=== PATIENT | male | born 1945 | race Caucasian/White ===

== ENCOUNTER 2016-02-16 09:24 | Day surgery (SDC) | payer MEDICARE, OTHER ==
[2016-02-16] MEDS ORDERED: LACTATED RINGERS 1,000 ML IV ONE (11:45)
[2016-02-16] MEDS ORDERED: MIDAZOLAM 2 MG/2 ML VIAL IVP ONE (12:00)
[2016-02-16] MEDS ORDERED: LIDOCAINE-MPF 2% 5 ML VIAL IM ONE (12:00)
[2016-02-16] MEDS ORDERED: PROPOFOL 200 MG/20 ML VIAL IVP ONE (12:00)
== END 2016-02-16 09:25 | disposition home or self-care (01) ==
PROC: 0DBL8ZX Excision of Transverse Colon, Via Natural or Artificial Opening Endoscopic, Diagnostic (ICD-10-PCS; principal; 2016-02-16 10:30)
DX: Z12.11 Encounter for screening for malignant neoplasm of colon (principal); D12.3 Benign neoplasm of transverse colon; K57.30 Diverticulosis of large intestine without perforation or abscess without bleeding; K64.4 Residual hemorrhoidal skin tags; K64.8 Other hemorrhoids; I10 Essential (primary) hypertension; R12 Heartburn; F17.200 Nicotine dependence, unspecified, uncomplicated; E78.5 Hyperlipidemia, unspecified; M10.9 Gout, unspecified; Z79.82 Long term (current) use of aspirin
CPT/HCPCS: 45385; J7120

== ENCOUNTER 2016-12-27 12:03 | Outpatient (CLI) | payer MEDICARE, OTHER ==
--- NOTE | 2016-12-27 17:16 | CT Report ---
CT CHEST WITHOUT CONTRAST FOR LUNG CANCER SCREENIN12/27/2016 CLINICAL INDICATION: A 71-year-old asymptomatic patient with 45 pack year history, current smoker fo r screening. Axial CT images of the chest were obtained without intravenous contrast, using low-dose screening vladimir hnique. In accordance with CT protocol optimization, one or more of the following dose reduction techniques w ere utilized for this exam: automated exposure control, adjustment of mA and/or KV based on patient size, or use of iterative reconstructive technique. No previous CT is available for comparison. The heart and great vessels are unremarkable. No hilar or mediastinal lymphadenopathy is present. T he lungs demonstrate emphysema. There is a pulmonary nodule in the posteromedial right lower lobe, m easuring 10 x 9 mm. No effusion or pneumothorax is present. Osseous structures demonstrate degenera tive changes. Limited evaluation of upper abdominal structures demonstrates a 2 cm hypodensity in th e anterior right lobe of the liver, and exophytic nodules arising from the left kidney, which may rep resent cysts. IMPRESSION: 1. SUSPICIOUS 10 MM NODULE AT THE RIGHT POSTEROMEDIAL LOWER LOBE. CONSIDER EITHER PET/CT FOR FURTHE R EVALUATION OR THREE MONTH FOLLOWUP CT TO EVALUATE FOR INTERVAL GROWTH. BY LUNG RADS CRITERIA, THIS NODULE HAS BETWEEN A 5% AND 15% PROBABILITY OF MALIGNANCY. 2. HYPODENSITY IN THE RIGHT LOBE OF THE LIVER AND EXOPHYTIC LESIONS ARISING FROM THE LEFT KIDNEY, IN COMPLETELY EVALUATED ON THIS STUDY. IF PET/CT IS PERFORMED, THESE CAN BE FURTHER EVALUATED WITH THAT . OTHERWISE, CONSIDER ABDOMINAL ULTRASOUND. LUNG RADS CATEGORY 4A, SUSPICIOUS ABNORMALITY. JOB #: [id number] EXT JOB #:[id number]
== END 2016-12-27 12:04 | disposition home or self-care (01) ==
LOC: DI 12:03
PROVIDERS: ATTEND Internal Medicine
DX: Z12.2 Encounter for screening for malignant neoplasm of respiratory organs (principal); R91.1 Solitary pulmonary nodule; F17.210 Nicotine dependence, cigarettes, uncomplicated

== ENCOUNTER 2017-07-19 07:48 | Outpatient (CLI) | payer MEDICARE, OTHER ==
[2017-07-19 08:27] LABS: HB2 TOTAL 16.4 g/dL; HEMOGLOBIN A1C 0.55 g/dL; HEMOGLOBIN A1C % 5.2 % (4.6-6.2)
[2017-07-19 09:06] LABS: PSA FREE 0.97 ng/mL (0.16-2.81)
[2017-07-19 09:07] LABS: PSA TOTAL 3.79 ng/mL (0.000-2.000)
== END 2017-07-19 07:49 | disposition home or self-care (01) ==
LOC: LAB 07:48
PROVIDERS: ATTEND Internal Medicine
DX: R97.20 Elevated prostate specific antigen [PSA] (principal); R73.9 Hyperglycemia, unspecified; R89.9 Unspecified abnormal finding in specimens from other organs, systems and tissues
CPT/HCPCS: 36415; 82947; 83036; 84154

== ENCOUNTER 2017-08-12 19:53 | Emergency (ER) | payer MEDICARE, OTHER ==
[2017-08-12] MEDS ORDERED: LIDOCAINE-EPINEPH-TETRACAINE 3 ML SYRINGE TOP STA (20:12)
--- NOTE | 2017-08-12 20:16 | ED Physician Documentation ---
History of Present Illness - Stated complaint Stated Complaint: HEAD LAC/GLF - Chief complaint Chief Complaint: Laceration - History obtained from History obtained from: Patient - History of Present Illness Timing: Prior to arrival - Additonal information Additional information: 72-year-old male presents the emergency department for evaluation of a head injury which occurred just prior to arrival. The patient fell backwards striking his head on the toilet seat. The patient denies a loss of consciousness after the event. The patient denies chest pain, palpitations or syncope before or after the event. The patient denies trauma to his torso or extremities. Symptoms are described as moderate. Currently bleeding is controlled. No other associated symptoms. The patient's tetanus is up-to-date Review of Systems Constitutional: denies: Fever Eyes: denies: Loss of vision Cardiac: denies: Chest pain / pressure, Palpitations Respiratory: denies: Dyspnea GI: denies: Abdominal Pain : denies: Dysuria Skin: denies: Rash Musculoskeletal: reports: Neck pain Neurologic: reports: Headache Psychiatric: denies: Depressed Endocrine: denies: Polydypsia PD PAST MEDICAL HISTORY - Past Medical History Past Medical History: Yes Cardiovascular: Hypertension, High cholesterol Respiratory: None Endocrine/Autoimmune: None GI: GERD, Hemorrhoids : None HEENT: Chronic vision loss, Chronic hearing loss Psych: None Musculoskeletal: Osteoarthritis, Gout Derm: None - Past Surgical History Past Surgical History: Yes General: Colonoscopy - Present Medications Home Medications: Ambulatory Orders Medication Instructions Recorded Confirmed Allopurinol 150 mg PO DAILY 02/15/16 02/15/16 Aspirin [Aspir-Low] 1 tab PO DAILY 02/15/16 02/15/16 Cetirizine [ZyrTEC] 1 tab PO DAILY 02/15/16 02/15/16 Lisinopril 20 mg PO BID 02/15/16 02/15/16 Omeprazole 1 tab PO DAILY 02/15/16 02/15/16 Potassium Chloride 1 tab PO DAILY 02/15/16 02/15/16 hydroCHLOROthiazide [Hydrodiuril] 1 tab PO DAILY 02/15/16 02/15/16 Terazosin HCl 1 cap PO DAILY 08/12/17 - Allergies Allergies/Adverse Reactions: Allergies Allergy/AdvReac Type Severity Reaction Status Date / Time No Known Drug Allergies Allergy Verified 08/12/17 19:57 - Social History Does the pt smoke?: Yes Smoking Status: Current every day smoker Does the pt drink ETOH?: Yes ETOH Use: Liquor Does the pt have substance abuse?: No - Immunizations Immunizations are current?: Yes Immunizations: TDAP current <10years PD ED PE NORMAL - General General: Alert and oriented X 3, No acute distress - HEENT HEENT: PERRL, EOMI, Moist mucous membranes. No: Atraumatic (The patient has a 1 cm laceration at the junction of the occiput and cervical spine. Currently there is no active bleeding. No foreign body) - Neck Neck: Other (The cervical Spine is not able to be cleared using the Nexus criteria secondary to the patient being intoxicated) - Cardiac Cardiac: RRR - Respiratory Respiratory: No respiratory distress - Derm Derm: Other (The patient has a 1 cm laceration at the back of the occiput) - Extremities Extremities: No deformity, Normal ROM s pain - Neuro Neuro: Alert and oriented X 3, coconut candy maker 2-12 intact, No motor deficit, Normal speech Eye Opening: Spontaneous Motor: Obeys Commands Verbal: Oriented GCS Score: 15 - Psych Psych: Normal mood Results - Vitals Vitals: Vital Signs - 24 hr 08/12/17 19:55 Temperature 36.4 C L Heart Rate 104 H Respiratory 16 Rate Blood Pressure 143/77 H O2 Saturation 99 Oxygen O2 Source Room air - Rads (name of study) No standard instances Radiology: Final report received (No cervical spine fracture, intracranial hemorrhage or skull fracture. ), See rad report Procedures - Laceration (location) Scalp Posterior Length in cm: 1 (Centimeters) Wound type: Linear Anesthesia: LET Wound Preparation: Irrigated copiously NS. No: FB identified Skin layer closure: Freedom Other: Patient tolerated well Complexity: Simple PD MEDICAL DECISION MAKING - ED course Complexity details: other (The patient had a laceration to the back of his skull , given the injury, age and intoxication a CT scan of the headAnd cervical spine were performed. There was no acute finding which would necessitate admission or acute surgical consultation. The patient's wound was closed using noreen and the patient appears appropriate for discharge home in ongoing outpatient management. I discussed warning signs and advised returning to the emergency department immediately for any worsening or concerns.) - Sepsis Event Vital Signs: Vital Signs - 24 hr 08/12/17 19:55 Temperature 36.4 C L Heart Rate 104 H Respiratory 16 Rate Blood Pressure 143/77 H O2 Saturation 99 Oxygen O2 Source Room air Departure - Departure Clinical Impression: Laceration Condition: Good Instructions: ED Laceration All Follow-Up: Cortez Blackburn MD [Primary Care Provider] - Within 1 week (Please have your primary care physician remove your noreen in 7-10 days) Comments: Please return to the emergency department immediately for worsening symptoms or any concerns Discharge Date/Time: 08/12/17 20:55
[2017-08-12 20:59] VITALS: BP 109/65
--- NOTE | 2017-08-12 20:59 | CT Report ---
Procedure Date: 08/12/2017 Accession Number: [id number] / [id number] Procedure: CT - Head W/O CPT Code: FULL RESULT: EXAM: CT HEAD EXAM DATE: 08/12/2017 08:38 PM. CLINICAL HISTORY: Head injury. COMPARISON: None. TECHNIQUE: Multiaxial CT images were obtained from the foramen magnum to the vertex. Reformats: Coronal. IV contrast: None. In accordance with CT protocol optimization, one or more of the following dose reduction techniques were utilized for this exam: automated exposure control, adjustment of mA and/or KV based on patient size, or use of iterative reconstructive technique. FINDINGS: Parenchyma: No intraparenchymal hemorrhage. No evidence of mass, midline shift, or CT findings of infarction. Torres-white differentiation is distinct. Extraaxial Spaces: Normal for age. No subdural or epidural collections identified. Ventricles: Normal in size and position. Sinuses and Orbits: Scattered mucosal thickening without air-fluid levels. Unremarkable orbits. Minimally pneumatized mastoids. Bones: No evidence of fracture or calvarial defect. Other: None. IMPRESSION: Normal head CT. RADIA
--- NOTE | 2017-08-12 21:00 | CT Report ---
Procedure Date: 08/12/2017 Accession Number: [id number] / [id number] Procedure: CT - Cervical Spine W/O CPT Code: FULL RESULT: EXAM: CT CERVICAL SPINE WITHOUT CONTRAST DATE: 08/12/2017 08:38 PM. HISTORY: Head injury. COMPARISONS: None. TECHNIQUE: Thin-section axial images were acquired of the cervical spine without contrast. Post-processing: Coronal and sagittal reformats. Other: None. In accordance with CT protocol optimization, one or more of the following dose reduction techniques were utilized for this exam: automated exposure control, adjustment of mA and/or KV based on patient size, or use of iterative reconstructive technique. FINDINGS: Alignment: No scoliosis or spondylolisthesis. Bones: No fracture or bone lesion. Interspace Levels/Facets: C1-C2: Anterior degenerative changes. C2-C3: Unremarkable. C3-C4: Unremarkable. C4-C5: Unremarkable. C5-C6: Moderate disk space narrowing with spurring. C6-C7: Unremarkable. C7-T1: Unremarkable. Musculature: Normal. No fatty atrophy. Other: The paravertebral and prevertebral soft tissues are unremarkable. The lung apices are clear. IMPRESSION: 1. No acute cervical spine abnormalities. 2. Degenerative disk disease at C5-C6. RADIA
== END 2017-08-12 21:07 | disposition home or self-care (01) ==
LOC: ED 19:53
DX: S01.01XA Laceration without foreign body of scalp, initial encounter (principal); W18.2XXA Fall in (into) shower or empty bathtub, initial encounter; W22.8XXA Striking against or struck by other objects, initial encounter; I10 Essential (primary) hypertension; E78.00 Pure hypercholesterolemia, unspecified; F17.200 Nicotine dependence, unspecified, uncomplicated; Z79.82 Long term (current) use of aspirin
CPT/HCPCS: 12001; 70450; 72125; 99283

== ENCOUNTER 2018-01-09 12:09 | Outpatient (CLI) | payer MEDICARE, OTHER ==
--- NOTE | 2018-01-09 13:37 | CT Report ---
Reason: PULMONARY NODULE Procedure Date: 01/09/2018 Accession Number: [id number] / [id number] Procedure: CT - Chest W/O CPT Code: FULL RESULT: EXAM: CT CHEST EXAM DATE: 01/09/2018 12:42 PM. CLINICAL HISTORY: PULMONARY NODULE. COMPARISONS: CHEST SCREEN LOW DOSE W/O 12/27/2016 12:16 PM. TECHNIQUE: Routine helical CT imaging was performed through the chest. IV contrast: None. Reconstructions: Coronal and sagittal as well as maximum intensity projections in the coronal plane.. In accordance with CT protocol optimization, one or more of the following dose reduction techniques were utilized for this exam: automated exposure control, adjustment of mA and/or KV based on patient size, or use of iterative reconstructive technique. FINDINGS: Lungs/Pleura: The posterior right lower lobe well-circumscribed solid nodule is stable measuring 1.2 x 0.8 cm when remeasured in similar fashion on both examinations, image 46 series 4. There is a spiculated partially solid-appearing nodule in the left upper lobe laterally which now measures 1.3 x 1.2 cm and previously measured 1.1 x 0.8 cm when remeasured in similar fashion on image 27 series 4, suspicious finding. Lung parenchymal background demonstrates at least moderate emphysema. No pleural effusion or pneumothorax. Mediastinum: No adenopathy by size criteria or masses. The heart and great vessels are normal. Bones: No aggressive osseous lesions. Visualized Abdomen: There is a faintly visualized 2.0 cm hypodense lesion in the pancreatic tail, image 56 series 4 that is not completely characterized. A left renal cyst is noted. 2.2 cm right hepatic dome lesion, incompletely characterized. Other: None. IMPRESSION: The previously followed posterior right lower lobe lung nodule is stable in size. Interval progression of a previously present sub-solid focus into a partially solid spiculated nodule which has increased in size and is suspicious. 1 year persistence with interval growth; this represents cancer until proven otherwise. Recommendation: -Biopsy of the increasing left upper lobe nodule. -Stability of the right lower lobe nodule makes it reasonable to continue surveillance of the same. Recommend repeat CT of the chest in 1 year. If this nodule demonstrates a 2 year stability it is then classified as benign and would require no further follow-up imaging. RADIA
== END 2018-01-09 12:10 | disposition home or self-care (01) ==
LOC: DI 12:09
PROVIDERS: ATTEND Internal Medicine
DX: R91.1 Solitary pulmonary nodule (principal)
CPT/HCPCS: 71250

== ENCOUNTER 2018-01-10 07:46 | Outpatient (CLI) | payer MEDICARE, OTHER ==
[2018-01-10 08:04] LABS: BASOPHILS # (AUTO) 0.1 10^3/uL (0.0-0.1); BASOPHILS % (AUTO) 0.9 %; EOSINOPHILS # (AUTO) 0.4 10^3/uL (0.0-0.7); EOSINOPHILS % (AUTO) 4.8 %; HGB - HEMOGLOBIN 14.1 g/dL (14.0-18.0); LYMPHOCYTES # (AUTO) 2.2 10^3/uL (1.5-3.5); LYMPHOCYTES % (AUTO) 29.5 %; MEAN CORPUSCULAR HEMOGLOBIN 30.8 pg (27.0-31.0); MEAN CORPUSCULAR HGB CONC 32.7 g/dL (32.0-36.0); MEAN CORPUSCULAR VOLUME 94.1 fL (80.0-94.0); MEAN PLATELET VOLUME 7.9 fL (7.4-11.4); MONOCYTES # (AUTO) 0.7 10^3/uL (0.0-1.0); MONOCYTES % (AUTO) 9.6 %; NEUTROPHILS # (AUTO) 4.2 10^3/uL (1.5-6.6); NEUTROPHILS % (AUTO) 55.2 %; PLT - PLATELET COUNT 256 10^3/uL (130-450); RED BLOOD COUNT 4.56 10^6/uL (4.70-6.10); RED CELL DISTRIBUTION WIDTH 14.6 % (12.0-15.0); WHITE BLOOD COUNT 7.6 x10^3/uL (4.8-10.8)
[2018-01-10 08:22] LABS: ALBUMIN 3.5 g/dL (3.2-5.5); ALKALINE PHOSPHATASE 57 IU/L (42-121); ALT ALANINE AMINOTRANSFERASE 18 IU/L (10-60); AST ASPARTATE AMINOTRANSFERASE 20 IU/L (10-42); BILIRUBIN,TOTAL 0.8 mg/dL (0.2-1.0); BUN - BLOOD UREA NITROGEN 15 mg/dL (6-20); CALCIUM 8.8 mg/dL (8.5-10.3); CARBON DIOXIDE - CO2 27 mmol/L (21-32); CHLORIDE 108 mmol/L (101-111); CHOL/HDL RATIO 3.4 (<5.0); CHOLESTEROL 158 mg/dL; CREATININE 0.9 mg/dL (0.6-1.2); GFR - MDRD 83 (>89); GLUCOSE 107 mg/dL (70-100); HDL CHOLESTEROL 47 mg/dL; LDL CHOLESTEROL,CALCULATED 85 mg/dL; LDL/HDL RATIO 1.8 (<3.6); SODIUM 140 mmol/L (135-145); VLDL CHOLESTEROL 26 mg/dL
[2018-01-10 09:19] LABS: PSA FREE 0.91 ng/mL (0.16-2.81)
[2018-01-10 09:20] LABS: PSA TOTAL 3.65 ng/mL (0.000-2.000)
== END 2018-01-10 07:47 | disposition home or self-care (01) ==
LOC: LAB 07:46
PROVIDERS: ATTEND Internal Medicine
DX: R97.20 Elevated prostate specific antigen [PSA] (principal); R73.9 Hyperglycemia, unspecified; M10.9 Gout, unspecified; I10 Essential (primary) hypertension
CPT/HCPCS: 36415; 80053; 80061; 83721; 84153; 84154; 85025

== ENCOUNTER 2018-03-06 11:01 | Outpatient (CLI) | payer MEDICARE, OTHER | END 2018-03-06 11:02 | disposition home or self-care (01) | LOC: LAB 11:01 | PROVIDERS: ATTEND Internal Medicine | DX: I10 Essential (primary) hypertension (principal) | CPT/HCPCS: 36415; 80048 ==

== ENCOUNTER 2018-06-17 18:27 | Emergency (ER) | payer MEDICARE, OTHER ==
--- NOTE | 2018-06-17 18:58 | ED Physician Documentation ---
History of Present Illness - Stated complaint Stated Complaint: BLOOD IN URINE - Chief complaint Chief Complaint: General - History obtained from History obtained from: Patient, Family - History of Present Illness Timing: Today (72-year-old gentleman with history of high PSAs but no history of prostate cancer presents with hematuria today. It is a large amount of blood but not associated with clots. No urinary frequency, bladder or flank pain. He says he had a left low back to me a couple of months ago for localized lung cancer and briefly had hematuria but that resolved without specific interv ention. He is on terazosin long-term for his prostate.) Review of Systems Constitutional: reports: Reviewed and negative Cardiac: reports: Reviewed and negative Respiratory: reports: Reviewed and negative GI: reports: Reviewed and negative : denies: Dysuria, Frequency, Hesitancy, Unable to Void, Incontinent PD PAST MEDICAL HISTORY - Past Medical History Past Medical History: Yes Cardiovascular: Hypertension Respiratory: Other Neuro: None Endocrine/Autoimmune: None GI: GERD, Hemorrhoids : None HEENT: Chronic vision loss, Chronic hearing loss Psych: None Musculoskeletal: Osteoarthritis, Gout Derm: None - Past Surgical History Past Surgical History: Yes General: Colonoscopy Cardiovascular: Lobectomy - Present Medications Home Medications: Ambulatory Orders Medication Instructions Recorded Confirmed Allopurinol 150 mg PO DAILY 02/15/16 02/15/16 Aspirin [Aspir-Low] 1 tab PO DAILY 02/15/16 02/15/16 Cetirizine [ZyrTEC] 1 tab PO DAILY 02/15/16 02/15/16 Lisinopril 20 mg PO BID 02/15/16 02/15/16 Omeprazole 1 tab PO DAILY 02/15/16 02/15/16 Potassium Chloride 1 tab PO BID 02/15/16 02/15/16 hydroCHLOROthiazide [Hydrodiuril] 1 tab PO DAILY 02/15/16 02/15/16 Terazosin HCl 1 cap PO DAILY 08/12/17 Ciprofloxacin HCl [Cipro] 500 mg PO BID #20 tablet 06/17/18 predniSONE [Prednisone] 06/17/18 - Allergies Allergies/Adverse Reactions: Allergies Allergy/AdvReac Type Severity Reaction Status Date / Time ranitidine Allergy Cramps Verified 06/17/18 18:35 - Social History Does the pt smoke?: No Smoking Status: Former smoker Does the pt drink ETOH?: Yes Does the pt have substance abuse?: No - Immunizations Immunizations are current?: Yes Immunizations: TDAP current <10years - POLST Patient has POLST: No PD ED PE NORMAL - Vitals Vital signs reviewed: Yes - General General: Alert and oriented X 3, No acute distress - Abdomen Abdomen: Normal bowel sounds, Soft, Non tender - Back Back: No CVA TTP, No spinal TTP - Neuro Neuro: Alert and oriented X 3, Normal speech Results - Vitals Vitals: Vital Signs - 24 hr 06/17/18 18:31 Temperature 36.7 C Heart Rate 87 Respiratory 16 Rate Blood Pressure 141/75 H O2 Saturation 97 Oxygen O2 Source Room air - Labs Labs: Laboratory Tests 06/17/18 18:49 Urine Color RED/BLOODY Urine Clarity BLOODY Urine pH 6.5 Ur Specific [place] 1.025 Urine Protein >=300 Urine Glucose (UA) NEGATIVE Urine Ketones TRACE Urine Occult Blood LARGE H Urine Nitrite POSITIVE H Urine Bilirubin NEGATIVE Urine Urobilinogen 0.2 (NORMAL) Ur Leukocyte Esterase TRACE H Urine RBC TNTC H Urine WBC 0-3 Ur Squamous Epith Cells NONE SEEN Urine Bacteria None Seen Urine Yeast PRESENT Ur Microscopic Review INDICATED Urine Culture Comments INDICATED Departure - Departure Disposition: 01 Home, Self Care Clinical Impression: Hemorrhagic cystitis Condition: Good Record reviewed to determine appropriate education?: Yes Instructions: ED UTI Cystitis Male Prescriptions: Ciprofloxacin HCl [Cipro] 500 mg PO BID #20 tablet Comments: We will culture your urine, the results should be done in 48-72 hours. If an antibiotic change is necessary we will call you. Return if worse in the meantime, especially if you develop increasing flank pain, fevers, or cannot soto p down the medication. Also as discussed, you need to follow-up with your primary care physician for repeat urinalysis in a few days to a week or 2. If the blood has not cleared up they will refer you for further evaluation and treatment.
[2018-06-17 19:06] LABS: GLUCOSE, URINE (UA) NEGATIVE (NEGATIVE); KETONES,URINE (UA) TRACE mg/dL (NEGATIVE); LEUKOCYTE ESTERASE, URINE TRACE (NEGATIVE); NITRITE,URINE POSITIVE (NEGATIVE); OCCULT BLOOD,URINE LARGE (NEGATIVE); PH,URINE 6.5 PH (5.0-7.5); PROTEIN,URINE >=300 mg/dL (NEGATIVE); UROBILINOGEN,URINE 0.2 (NORMAL) E.U./dL (NORMAL)
[2018-06-17 19:14] LABS: BILIRUBIN,URINE NEGATIVE (NEGATIVE); CLARITY,URINE BLOODY (CLEAR); ICTOTEST,URINE NEGATIVE
[2018-06-17 19:15] LABS: BACTERIA,URINE None Seen /HPF (None Seen); RBC,URINE TNTC /HPF (0-5); SQUAMOUS EPITHELIAL CELL,UR NONE SEEN (<= Few); YEAST,URINE PRESENT
[2018-06-17] MEDS ORDERED: CIPROFLOXACIN 250 MG TABLET PO STA (19:22)
[2018-06-17 19:45] VITALS: BP 165/92
== END 2018-06-17 19:45 | disposition home or self-care (01) ==
LOC: ED 18:27
DX: N30.91 Cystitis, unspecified with hematuria (principal); R97.20 Elevated prostate specific antigen [PSA]; I10 Essential (primary) hypertension; Z79.899 Other long term (current) drug therapy; Z90.2 Acquired absence of lung [part of]; Z85.118 Personal history of other malignant neoplasm of bronchus and lung; Z79.82 Long term (current) use of aspirin; Z87.891 Personal history of nicotine dependence
CPT/HCPCS: 81001; 87086; 99283; A9270; 81003

== ENCOUNTER 2018-06-26 13:12 | Outpatient (CLI) | payer MEDICARE, OTHER ==
[2018-06-26] MEDS ORDERED: ALBUTEROL NEB 2.5 MG/3 ML INH ONE (14:00)
== END 2018-06-26 13:13 | disposition home or self-care (01) ==
LOC: RT 13:12
PROVIDERS: ATTEND Registered Nurse
DX: J20.9 Acute bronchitis, unspecified (principal); C34.90 Malignant neoplasm of unspecified part of unspecified bronchus or lung; Z87.891 Personal history of nicotine dependence; Z90.2 Acquired absence of lung [part of]
CPT/HCPCS: 93005; 94060

== ENCOUNTER 2018-07-11 08:07 | Outpatient (CLI) | payer MEDICARE, OTHER ==
[2018-07-11 08:33] LABS: BASOPHILS % (AUTO) 0.5 %; EOSINOPHILS # (AUTO) 0.5 10^3/uL (0.0-0.7); EOSINOPHILS % (AUTO) 9.5 %; HGB - HEMOGLOBIN 13.7 g/dL (14.0-18.0); LYMPHOCYTES # (AUTO) 1.5 10^3/uL (1.5-3.5); LYMPHOCYTES % (AUTO) 27.1 %; MEAN CORPUSCULAR HEMOGLOBIN 31.4 pg (27.0-31.0); MEAN CORPUSCULAR HGB CONC 34.2 g/dL (32.0-36.0); MEAN PLATELET VOLUME 8.2 fL (7.4-11.4); MONOCYTES # (AUTO) 0.5 10^3/uL (0.0-1.0); MONOCYTES % (AUTO) 9.7 %; NEUTROPHILS % (AUTO) 53.2 %; PLT - PLATELET COUNT 209 10^3/uL (130-450); RED BLOOD COUNT 4.36 10^6/uL (4.70-6.10); RED CELL DISTRIBUTION WIDTH 13.7 % (12.0-15.0); WHITE BLOOD COUNT 5.6 x10^3/uL (4.8-10.8)
[2018-07-11 08:48] LABS: ALBUMIN 3.7 g/dL (3.2-5.5); ALBUMIN/GLOBULIN RATIO 1.1 (1.0-2.2); CALCIUM 8.9 mg/dL (8.5-10.3); CREATININE 1.1 mg/dL (0.6-1.2); TOTAL PROTEIN 7.2 g/dL (6.7-8.2)
[2018-07-11 09:15] LABS: PSA FREE 0.87 ng/mL (0.16-2.81)
[2018-07-11 09:16] LABS: PSA TOTAL 2.82 ng/mL (0.000-2.000)
== END 2018-07-11 08:08 | disposition home or self-care (01) ==
LOC: LAB 08:07
PROVIDERS: ATTEND Family Medicine
DX: C34.90 Malignant neoplasm of unspecified part of unspecified bronchus or lung (principal); R97.20 Elevated prostate specific antigen [PSA]
CPT/HCPCS: 36415; 80053; 84153; 84154; 85025

== ENCOUNTER 2018-07-16 14:18 | Outpatient (CLI) | payer MEDICARE, OTHER ==
--- NOTE | 2018-07-16 15:37 | XRAY Report ---
Reason: ORTHOPNEA,BPH Procedure Date: 07/16/2018 Accession Number: [id number] / [id number] Procedure: XR - Chest 2 View X-Ray CPT Code: 62218 FULL RESULT: EXAM: CHEST RADIOGRAPHY EXAM DATE: 07/16/2018 03:01 PM. CLINICAL HISTORY: ORTHOPNEA,BPH. COMPARISON: None. TECHNIQUE: 2 views. FINDINGS: Lungs/Pleura: Lung volumes are low with mild left basilar subsegmental atelectases. No focal opacities evident. No pleural effusion. No pneumothorax. Normal volumes. Mediastinum: Heart and mediastinal contours are unremarkable. Other: None. IMPRESSION: Low lung volumes with mild left basilar atelectasis. No acute cardiopulmonary process. RADIA
== END 2018-07-16 14:19 | disposition home or self-care (01) ==
LOC: LAB 14:18 → DI 14:19
PROVIDERS: ATTEND Family Medicine
DX: J98.11 Atelectasis (principal); N40.0 Benign prostatic hyperplasia without lower urinary tract symptoms
CPT/HCPCS: 36415; 71046; 83880

== ENCOUNTER 2018-10-18 10:43 | Outpatient (CLI) | payer MEDICARE, OTHER ==
--- NOTE | 2018-10-20 16:24 | CT Report ---
Reason: COUGH, OTHER CHRONIC SINUSITIS Procedure Date: 10/18/2018 Accession Number: [id number] / [id number] Procedure: CT - Sinuses CPT Code: FULL RESULT: EXAM: CT SINUS EXAM DATE: 10/18/2018 10:58 AM. HISTORY: COUGH, OTHER CHRONIC SINUSITIS. COMPARISONS: HEAD W/O 08/12/2017 8:28 PM. TECHNIQUE: Routine multi-axial CT imaging performed through the sinuses. Iodinated IV contrast: None. Reconstructions: Multiplanar reformats. In accordance with CT protocol optimization, one or more of the following dose reduction techniques were utilized for this exam: automated exposure control, adjustment of mA and/or KV based on patient size, or use of iterative reconstructive technique. FINDINGS: Sinuses: Maxillary sinuses: Extensive opacification of the axillary sinuses bilaterally. This appears to be secondary to chronic mucosal thickening. There appears to have been bilateral uncinectomy and antrostomies. Patency of drainage is demonstrated. This is relatively narrow on the left side. Ethmoid air cells: Multifocal mucosal thickening, greater at the anterior ethmoids. Partial ethmoidectomy. Frontal sinuses: Inferior mucosal thickening with obstructed frontal recesses. 6 mm osteoma seen at the frontal recess on the left. Sphenoid sinuses: No significant abnormality. Nasal Cavity: -Partial right middle turbinectomy. -Near complete left middle turbinectomy. -Partial right inferior turbinectomy. -Lower nasal septal deviation to the right. Mid nasal septal deviation to the left with spur formation. -Anterior right bony maxillary/hard palate resorption/resection noted with soft tissue seen continuous with the oral cavity. This is partially visualized. Clinically correlate. -Mid posterior left paramidline hard palate resorption/resection. Clinically correlate. - Osseous Structures: As above. Orbits: Unremarkable. Other: None. IMPRESSION: 1. Multifocal postsurgical changes as noted. 2. Bony resorption and/or resection is noted including anterior maxillary bone on the right and mid posterior hard palate. 3. Evidence of chronic maxillary, ethmoid and frontal sinusitis, relatively mild at the ethmoids and frontal sinuses. 3. 4. Nasal septal deviation. RADIA
== END 2018-10-18 10:44 | disposition home or self-care (01) ==
LOC: DI 10:43
PROVIDERS: ATTEND Otolaryngology
DX: J32.8 Other chronic sinusitis (principal); J34.2 Deviated nasal septum
CPT/HCPCS: 70486

== ENCOUNTER 2019-01-15 07:51 | Outpatient (CLI) | payer MEDICARE, OTHER ==
[2019-01-15 08:15] LABS: BASOPHILS # (AUTO) 0.1 10^3/uL (0.0-0.1); BASOPHILS % (AUTO) 0.9 %; EOSINOPHILS # (AUTO) 0.3 10^3/uL (0.0-0.7); LYMPHOCYTES # (AUTO) 2.2 10^3/uL (1.5-3.5); MEAN CORPUSCULAR HEMOGLOBIN 30.4 pg (27.0-31.0); MEAN CORPUSCULAR HGB CONC 32.5 g/dL (32.0-36.0); MEAN CORPUSCULAR VOLUME 93.5 fL (80.0-94.0); MEAN PLATELET VOLUME 10.3 fL (7.4-11.4); MONOCYTES # (AUTO) 0.6 10^3/uL (0.0-1.0); MONOCYTES % (AUTO) 9.9 %; NEUTROPHILS # (AUTO) 3.1 10^3/uL (1.5-6.6); NEUTROPHILS % (AUTO) 48.6 %; PLT - PLATELET COUNT 209 10^3/uL (130-450); RED BLOOD COUNT 4.61 10^6/uL (4.70-6.10); RED CELL DISTRIBUTION WIDTH 13.2 % (12.0-15.0); WHITE BLOOD COUNT 6.3 x10^3/uL (4.8-10.8)
[2019-01-15 08:25] LABS: CALCIUM 8.8 mg/dL (8.5-10.3); CREATININE 1.1 mg/dL (0.6-1.2); URIC ACID 5.2 mg/dL (2.6-7.2)
[2019-01-15 08:32] LABS: HB2 TOTAL 14.4 g/dL; HEMOGLOBIN A1C 0.5 g/dL; HEMOGLOBIN A1C % 5.3 % (4.6-6.2)
== END 2019-01-15 07:52 | disposition home or self-care (01) ==
LOC: LAB 07:51
PROVIDERS: ATTEND Family Medicine
DX: C34.90 Malignant neoplasm of unspecified part of unspecified bronchus or lung (principal); R73.9 Hyperglycemia, unspecified; G25.2 Other specified forms of tremor; M10.9 Gout, unspecified; I10 Essential (primary) hypertension
CPT/HCPCS: 36415; 80048; 83036; 84550; 85025

== ENCOUNTER 2019-08-05 12:56 | Outpatient (CLI) | payer MEDICARE, OTHER ==
--- NOTE | 2019-08-05 15:53 | CT Report ---
PROCEDURE: Sinuses INDICATIONS: CHRONIC PANSINUSITIS TECHNIQUE: Noncontrast 3.0 mm axial images acquired from the frontal sinuses to the mid-sella, with coronal and sagittal reformats. For radiation dose reduction, the following was used: automated exposure control , adjustment of mA and/or kV according to patient size. COMPARISON: None. FINDINGS: Image quality: Excellent. Sphenoid sinuses are clear. There is mild bilateral partial opacification of the ethmoid air cells bi laterally. There is moderate to severe bilateral maxillary sinus disease, right greater than left. Th ere is also opacification seen in the inferior left frontal sinus. Right frontal sinus appears clear. Ostiomeatal Complexes: Presumed postsurgical changes from bilateral uncinectomies. No Sushil cells. Miscellaneous: Visualized intra-orbital contents are normal. No josselin bullosa. Mild anterior right torres and posterior leftward nasal septal deviation. IMPRESSION: Moderate to severe bilateral maxillary sinus disease, right greater than left. Additional mild inferior left frontal, and bilateral ethmoid sinus disease. Reviewed by: Cm Houston MD on 08/05/2019 3:51 PM PDT Approved by: Cm Houston MD on 08/05/2019 3:51 PM PDT Station ID: [id number]
== END 2019-08-05 12:57 | disposition home or self-care (01) ==
LOC: DI 12:56
PROVIDERS: ATTEND Otolaryngology
DX: J32.4 Chronic pansinusitis (principal); J33.0 Polyp of nasal cavity
CPT/HCPCS: 70486

== ENCOUNTER 2020-01-15 08:13 | Outpatient (CLI) | payer MEDICARE, OTHER ==
[2020-01-15 09:01] LABS: BASOPHILS # (AUTO) 0.1 10^3/uL (0.0-0.1); EOSINOPHILS # (AUTO) 0.3 10^3/uL (0.0-0.7); HGB - HEMOGLOBIN 14.7 g/dL (14.0-18.0); LYMPHOCYTES # (AUTO) 1.9 10^3/uL (1.5-3.5); LYMPHOCYTES % (AUTO) 28.2 %; MEAN CORPUSCULAR HGB CONC 32.9 g/dL (32.0-36.0); MEAN CORPUSCULAR VOLUME 94.3 fL (80.0-94.0); MEAN PLATELET VOLUME 10.5 fL (7.4-11.4); MONOCYTES # (AUTO) 0.7 10^3/uL (0.0-1.0); MONOCYTES % (AUTO) 9.6 %; NEUTROPHILS # (AUTO) 3.8 10^3/uL (1.5-6.6); NEUTROPHILS % (AUTO) 55.6 %; PLT - PLATELET COUNT 222 10^3/uL (130-450); RED BLOOD COUNT 4.74 10^6/uL (4.70-6.10); WHITE BLOOD COUNT 6.8 x10^3/uL (4.8-10.8)
[2020-01-15 09:18] LABS: ALBUMIN 3.7 g/dL (3.2-5.5); ALKALINE PHOSPHATASE 58 IU/L (42-121); ALT ALANINE AMINOTRANSFERASE 23 IU/L (10-60); AST ASPARTATE AMINOTRANSFERASE 19 IU/L (10-42); BILIRUBIN,TOTAL 1.2 mg/dL (0.2-1.0); BUN - BLOOD UREA NITROGEN 17 mg/dL (6-20); CALCIUM 8.8 mg/dL (8.5-10.3); CARBON DIOXIDE - CO2 29 mmol/L (21-32); CHLORIDE 101 mmol/L (101-111); CHOL/HDL RATIO 2.8 (<5.0); CHOLESTEROL 169 mg/dL; GLUCOSE 104 mg/dL (70-100); HDL CHOLESTEROL 60 mg/dL; LDL CHOLESTEROL,CALCULATED 95 mg/dL; LDL/HDL RATIO 1.6 (<3.6); SODIUM 140 mmol/L (135-145); TOTAL PROTEIN 7.4 g/dL (6.7-8.2); VLDL CHOLESTEROL 14 mg/dL
== END 2020-01-15 08:14 | disposition home or self-care (01) ==
LOC: LAB 08:13
PROVIDERS: ATTEND Family Medicine
DX: Z12.5 Encounter for screening for malignant neoplasm of prostate (principal); I10 Essential (primary) hypertension; R06.00 Dyspnea, unspecified
CPT/HCPCS: 36415; 80053; 80061; 84443; 85025; G0103; 83721; 84153

== ENCOUNTER 2020-04-19 21:59 | Emergency (ER) | payer MEDICARE, OTHER ==
[2020-04-19] MEDS ORDERED: FAMOTIDINE 20 MG/2 ML VIAL IVP STA (22:17)
[2020-04-19 22:27] LABS: BASOPHILS # (AUTO) 0.1 10^3/uL (0.0-0.1); BASOPHILS % (AUTO) 0.7 %; EOSINOPHILS # (AUTO) 0.3 10^3/uL (0.0-0.7); EOSINOPHILS % (AUTO) 2.9 %; HCT - HEMATOCRIT 44.4 % (42.0-52.0); HGB - HEMOGLOBIN 14.9 g/dL (14.0-18.0); LYMPHOCYTES # (AUTO) 1.5 10^3/uL (1.5-3.5); LYMPHOCYTES % (AUTO) 15.6 %; MEAN CORPUSCULAR HEMOGLOBIN 31.4 pg (27.0-31.0); MEAN CORPUSCULAR HGB CONC 33.6 g/dL (32.0-36.0); MEAN CORPUSCULAR VOLUME 93.7 fL (80.0-94.0); MEAN PLATELET VOLUME 10.2 fL (7.4-11.4); MONOCYTES # (AUTO) 0.8 10^3/uL (0.0-1.0); NEUTROPHILS # (AUTO) 6.8 10^3/uL (1.5-6.6); NEUTROPHILS % (AUTO) 72.3 %; PLT - PLATELET COUNT 216 10^3/uL (130-450); RED BLOOD COUNT 4.74 10^6/uL (4.70-6.10); RED CELL DISTRIBUTION WIDTH 13.2 % (12.0-15.0); WHITE BLOOD COUNT 9.5 x10^3/uL (4.8-10.8)
[2020-04-19 22:35] LABS: ALBUMIN 3.7 g/dL (3.2-5.5); BILIRUBIN,TOTAL 0.7 mg/dL (0.2-1.0); CALCIUM 8.8 mg/dL (8.5-10.3); CREATININE 1.2 mg/dL (0.6-1.2); POTASSIUM 3.1 mmol/L (3.5-5.0); TOTAL PROTEIN 7.3 g/dL (6.7-8.2)
[2020-04-19 22:37] VITALS: BP 141/77
[2020-04-19] MEDS ORDERED: ASPIRIN 325 MG TABLET PO STA (22:44)
--- NOTE | 2020-04-19 22:52 | ED Physician Documentation ---
History of Present Illness - Stated complaint Stated Complaint: ABD PX - Chief complaint Chief Complaint: Abd Pain - History obtained from History obtained from: Patient - Additonal information Additional information: 74-year-old man with past medical history of high blood pressure, former smoker, GERD, presents with epigastric pain sudden onset 2 hours prior to arrival radiating to the right arm. Constant, not worse with exertion, improving slightly with Tums, burning quality, now mild. Nonpleuritic. Denies cough, fever, back pain, chest pain, shortness of breath, nausea vomiting diarrhea or rectal bleeding. denies urinary sx. Denies FH heart disease in first degree relative <65. PD PAST MEDICAL HISTORY - Past Medical History Cardiovascular: Hypertension Respiratory: Other Neuro: None Endocrine/Autoimmune: None GI: GERD, Hemorrhoids : None HEENT: Chronic vision loss, Chronic hearing loss Psych: None Musculoskeletal: Osteoarthritis, Gout Derm: None - Past Surgical History Past Surgical History: Yes General: Colonoscopy Cardiovascular: Lobectomy - Present Medications Home Medications: Ambulatory Orders Medication Instructions Recorded Confirmed Aspirin [Aspir-Low] 1 tab PO DAILY 02/15/16 04/19/20 Cetirizine [ZyrTEC] 1 tab PO DAILY 02/15/16 04/19/20 Omeprazole 1 tab PO DAILY 02/15/16 04/19/20 Potassium Chloride 1 tab PO BID 02/15/16 04/19/20 allopurinoL [Allopurinol] 150 mg PO DAILY 02/15/16 04/19/20 hydroCHLOROthiazide [Hydrodiuril] 1 tab PO DAILY 02/15/16 04/19/20 Terazosin HCl 1 cap PO DAILY 08/12/17 04/19/20 Valsartan [Diovan] 80 mg PO DAILY 04/19/20 04/19/20 - Allergies Allergies/Adverse Reactions: Allergies Allergy/AdvReac Type Severity Reaction Status Date / Time ranitidine Allergy Cramps Verified 06/17/18 18:35 - Social History Does the pt smoke?: No Smoking Status: Never smoker Does the pt drink ETOH?: Yes Does the pt have substance abuse?: No - Immunizations Immunizations are current?: Yes Immunizations: TDAP current <10years - POLST Patient has POLST: No Results - Vitals Vitals: Vital Signs - 24 hr 04/19/20 04/19/20 22:02 22:31 Temperature 36.4 C L 36.4 C L Heart Rate 102 H 93 Respiratory 24 16 Rate Blood Pressure 160/83 H 141/77 H O2 Saturation 98 98 Oxygen O2 Source Room air - Labs Labs: Laboratory Tests 04/19/20 04/19/20 04/19/20 22:20 22:20 22:20 WBC 9.5 RBC 4.74 Hgb 14.9 Hct 44.4 MCV 93.7 MCH 31.4 H MCHC 33.6 RDW 13.2 Plt Count 216 MPV 10.2 Neut # (Auto) 6.8 H Lymph # (Auto) 1.5 [place] # (Auto) 0.8 Eos # (Auto) 0.3 Baso # (Auto) 0.1 Absolute Nucleated RBC 0.00 Nucleated RBC % 0.0 Sodium 139 Potassium 3.1 L Chloride 102 Carbon Dioxide 25 Anion Gap 12.0 BUN 17 Creatinine 1.2 Estimated GFR (MDRD) 59 L Glucose 127 H Calcium 8.8 Total Bilirubin 0.7 AST 50 H ALT 35 Alkaline Phosphatase 69 Troponin I High Sens 4.3 Total Protein 7.3 Albumin 3.7 Globulin 3.6 Albumin/Globulin Ratio 1.0 Lipase 32 PD MEDICAL DECISION MAKING - ED course ED course: 74-year-old man presents with atypical chest pain/epigastric pain. Initial troponin, chest x-ray, EKG without acute findings. HEART score 3 (age>65, 2 risk factors). Offered the patient observation for stress testing and he declined, preferring to follow-up with his primary doctor. Strict return precautions given. Departure - Departure Disposition: 01 Home, Self Care Clinical Impression: Hypokalemia, Epigastric pain, Right arm pain Condition: Good Instructions: ED Chest Pain Atypical Unkn Cause Comments: You were seen in the emergency department for stomach pain radiating to the right arm. Your EKG, chest x-ray, and blood work including a troponin, and a test for your heart did not show any concerning findings. Your lab work did show that you have a mildly low potassium of 3.1. You should make sure that you eat lots of green leafy vegetables high in potassium, drink lots of water, and follow-up with your primary doctor for routine repeat blood work. If you continue to experience pain in the stomach or start to have chest pain then you may consider asking your doctor about stress testing for your heart. Please return to the emergency department if you develop any new or worsening symptoms or other concerns.
--- NOTE | 2020-04-20 08:55 | XRAY Report ---
PROCEDURE: Chest 1 View X-Ray INDICATIONS: Chest pain TECHNIQUE: One view of the chest was acquired. COMPARISON: 07/16/2018 FINDINGS: Surgical changes and devices: None. Lungs and pleura: No pleural effusions or pneumothorax. Focal scarring in the left lung base is stab le compared to the prior examination. Linear opacities in the right lung base which could represent a telectasis or pneumonia. Mediastinum: Mediastinal contours appear normal. Heart size is normal. Bones and chest wall: No suspicious bony lesions. Overlying soft tissues appear unremarkable. IMPRESSION: Right basilar atelectasis versus developing pneumonia. Reviewed by: Lita Markham MD, PhD on 04/20/2020 8:53 AM PDT Approved by: Lita Markham MD, PhD on 04/20/2020 8:53 AM PDT Station ID: [id number]
--- OUTSIDE RECORDS SUMMARY | 2020-05-11 14:36 | EXTERNAL MEDICAL SUMMARY RPT | Continuity of Care Document ---
:1945 Demographics Phone Unavailable Preferred Language Unknown Marital Status Unknown Church Affiliation Unknown Race Unknown Ethnic Group Unknown Author Organization [facility] Address [address] [place] [address] Phone Care Team Providers Name Role Phone MD Unavailable Unavailable Results test status date ordered by attending specimen richard e ALBUMIN_GLOBULIN_RATIO unknown [id number] unknown unknown unknown T unknown [id number] unknown unknown unknown T unknown [id number] unknown unknown unknown ALKALINE_PHOSPHATASE unknown [id number] unknown unknown un known ALT_ALANINE_AMINOTRANS unknown [id number] unknown unknown unknown FERASE T unknown [id number] unknown unknown unknown T unknown [id number] unknown unknown unknown T unknown [id number] unknown unknown unknown T unknown [id number] unknown unknown unknown BASOPHILS_AUTO_ unknown [id number] unknown unknown unknown BILIRUBIN_TOTAL unknown [id number] unknown unknown unknown T unknown [id number] unknown unknown unknown T unknown [id number] unknown unknown unknown T unknown [id number] unknown unknown unknown T unknown [id number] unknown unknown unknown T unknown [id number] unknown unknown unknown T unknown [id number] unknown unknown unknown EOSINOPHILS_AUTO_ unknown [id number] unknown unknown unkno wn T unknown [id number] unknown unknown unknown GFR_-_MDRD unknown [id number] unknown unknown unknown T unknown [id number] unknown unknown unknown T unknown [id number] unknown unknown unknown T unknown [id number] unknown unknown unknown T unknown [id number] unknown unknown unknown T unknown [id number] unknown unknown unknown T unknown [id number] unknown unknown unknown T unknown [id number] unknown unknown unknown LYMPHOCYTES_AUTO_ unknown [id number] unknown unknown unkno wn T unknown [id number] unknown unknown unknown T unknown [id number] unknown unknown unknown T unknown [id number] unknown unknown unknown T unknown [id number] unknown unknown unknown MONOCYTES_AUTO_ unknown [id number] unknown unknown unknown T unknown [id number] unknown unknown unknown T unknown [id number] unknown unknown unknown T unknown [id number] unknown unknown unknown NEUTROPHILS_AUTO_ unknown [id number] unknown unknown unkno wn T unknown [id number] unknown unknown unknown T unknown [id number] unknown unknown unknown T unknown [id number] unknown unknown unknown T unknown [id number] unknown unknown unknown T unknown [id number] unknown unknown unknown T unknown [id number] unknown unknown unknown red_blood_cell_distrib unknown 19373834 unknown unknown unknown ution_width mean_corpuscular_hemog unknown [id number] unknown unknown unknown lobin_RBC calcium_serum unknown 63877105 unknown unknown unknown chloride_serum unknown 82960450 unknown unknown unknown albumin_globulin_ratio unknown 27483110 unknown unknown unknown _serum sodium_serum unknown 30649717 unknown unknown unknown mean_corpuscular_hemog unknown 12856663 unknown unknown unknown lobin_concentration_rbc Alanine_aminotransfera unknown 40530981 unknown unknown unknown se_Enzymatic_activity_v olume_in_Serum_or_Plasm a Albumin_Mass_volume_in unknown 70557872 unknown unknown unknown _Serum_or_Plasma Albumin_Globulin_Mass_ unknown 08430017 unknown unknown unknown Ratio_in_Serum_or_Plasm a Alkaline_phosphatase_E unknown 54817851 unknown unknown unknown nzymatic_activity_volum e_in_Blood creatinine_serum unknown 72936743 unknown unknown unknow n Anion_gap_4_in_Serum_o unknown 19830327 unknown unknown unknown r_Plasma Aspartate_aminotransfe unknown 77681592 unknown unknown unknown rase_Enzymatic_activity _volume_in_Serum_or_Pla sma Bilirubin.total_Mass_v unknown 75006662 unknown unknown unknown olume_in_Serum_or_Plasm a albumin_serum unknown 48186845 unknown unknown unknown Calcium_Moles_volume_i unknown 98583252 unknown unknown unknown n_Serum_or_Plasma carbon_dioxide_serum_t unknown 69991102 unknown unknown unknown otal Chloride_Moles_volume_ unknown 84401264 unknown unknown unknown in_Serum_or_Plasma Creatinine_Mass_volume unknown 30867061 unknown unknown unknown _in_Serum_or_Plasma Globulin_Mass_volume_i unknown 40050011 unknown unknown unknown n_Serum Glucose_Mass_volume_in unknown 40578145 unknown unknown unknown _Serum_or_Plasma neutrophil_count_blood unknown 63428290 unknown unknown unknown lymphocyte_count_blood unknown 55231781 unknown unknown unknown monocyte_count_blood unknown 20902817 unknown unknown un known basophil_count_blood unknown 98320893 unknown unknown un known mean_platelet_volume unknown 80977493 unknown unknown un known anion_gap_serum unknown 53544291 unknown unknown unknown eosinophil_count_blood unknown 16946246 unknown unknown unknown Protein_Mass_volume_in unknown 87304062 unknown unknown unknown _Serum_or_Plasma Sodium_Moles_volume_in unknown 93298893 unknown unknown unknown _Serum_or_Plasma alkaline_phosphatase_s unknown 91197946 unknown unknown unknown antonio globulin_serum unknown 44592816 unknown unknown unknown Urea_nitrogen_Mass_vol unknown 88323940 unknown unknown unknown ume_in_Serum_or_Plasma mean_corpuscular_volum unknown 70378145 unknown unknown unknown e_RBC potassium_blood unknown 92497667 unknown unknown unknown blood_glucose unknown 11907581 unknown unknown unknown protein_total_serum unknown 94294833 unknown unknown unk nown aspartate_aminotransfe unknown 49007821 unknown unknown unknown rase_SGOT_serum carbon_dioxide_serum_t unknown 93565430 unknown unknown unknown otal alanine_aminotransfera unknown 41846639 unknown unknown unknown se_SGPT_serum bilirubin_serum_total unknown 14567015 unknown unknown u nknown Hematocrit_Volume_Frac unknown 53033414 unknown unknown unknown tion_of_Blood_by_[place] ted_count Glomerular_filtration_ unknown 17639966 unknown unknown unknown rate_1.73_sq_M.predicte d_among_non-blacks_Volu me_Rate_Area_in_Serum_P lasma_or_Blood_by_Creat inine-based_formula_MDR D_ potassium_blood unknown 24660368 unknown unknown unknown hematocrit_blood unknown 71792116 unknown unknown unknow n hemoglobin_blood unknown 98175601 unknown unknown unknow n platelet_count unknown 95164682 unknown unknown unknown Glomerular_Filtration_ unknown 37097668 unknown unknown unknown rate Leukocytes_volume_in_B unknown 31002245 unknown unknown unknown lood_by_Automated_count erythrocyte_RBC_count unknown 33549585 unknown unknown u nknown leukocyte_count_blood unknown 60871100 unknown unknown u nknown Basophils_volume_in_Bl unknown 85919317 unknown unknown unknown ood_by_Manual_count eosinophil_count_blood unknown 77383432 unknown unknown unknown Hemoglobin_Mass_volume unknown 95987493 unknown unknown unknown _in_Blood lymphocyte_count_blood unknown 99221910 unknown unknown unknown monocyte_count_blood unknown 41320525 unknown unknown un known neutrophil_count_blood unknown 46799604 unknown unknown unknown Platelet_mean_volume_E unknown 40182594 unknown unknown unknown ntitic_volume_in_Blood_ by_[place] Platelets_volume_in_Bl unknown 20200419 unknown unknown unknown ood_by_Automated_count MCH_Entitic_mass_by_Au unknown 20200419 unknown unknown unknown tomated_count MCV_Entitic_volume_by_ unknown 20200419 unknown unknown unknown Automated_count Erythrocyte_distributi unknown 20200419 unknown unknown unknown on_width_Ratio_by_Autom ated_count Erythrocytes_volume_in unknown 20200419 unknown unknown unknown _Blood_by_Automated_cou nt urea_nitrogen_blood unknown 20200419 unknown unknown unk nown facility observation status value reference units lab code abn ormal line range notes All ALBUMIN_GLOB unknown 1.0 unknown AGRATIO unknow n unknown ULIN_RATIO All T unknown 3.7 unknown g/dL ALB unknown unkn own All T unknown 69 unknown U/L ALK_PHOS unknown un known All ALKALINE_PHO unknown 69 unknown U/L ALP unknown unknown SPHATASE All ALT_ALANINE_ unknown 35 unknown U/L ALT unknown unknown AMINOTRANSFER ASE All T unknown 35 unknown U/L ALT_SGPT unknown un known _ All T unknown 50 unknown U/L AST unknown unkn own All T unknown 1.0 unknown A_G_RATI unknown un known O All T unknown 0.1 10 unknown BASO_AUT unknown un known 3/UL O_ All BASOPHILS_AU unknown 0.1 10 unknown BA_ unknown unknown TO_ 3/UL All BILIRUBIN_TO unknown 0.7 unknown mg/dL BILIT unknown unknown JAMESON All T unknown 17 unknown mg/dL BUN unknown unkn own All T unknown 8.8 unknown mg/dL CA unknown unkn own All T unknown 102 unknown mmol/L CL unknown unkn own All T unknown 25 unknown mmol/L CO2 unknown unkn own All T unknown 1.2 unknown mg/dL CREAT unknown unkn own All T unknown 0.3 10 unknown EOS_AUTO unknown un known 3/UL _ All EOSINOPHILS_ unknown 0.3 10 unknown EO_ unknown unknown AUTO_ 3/UL All T unknown 12.0 unknown GAP unknown unkn own All GFR_-_MDRD unknown 59 unknown mL/min GFR unknown unknown All T unknown 59 unknown mL/min GFR_-_MD unknown un known RD All T unknown 3.6 unknown GLOB unknown unkn own All T unknown 127 unknown mg/dL GLU unknown unkn own All T unknown 44.4 unknown % HCT unknown unkn own All T unknown 14.9 unknown g/dL HGB unknown unkn own All T unknown 3.1 unknown meq/L K unknown unkn own All T unknown 1.5 10 unknown LYMPH_AU unknown un known 3/UL TO_ All LYMPHOCYTES_ unknown 1.5 10 unknown LY_ unknown unknown AUTO_ 3/UL All T unknown 31.4 unknown pg MCH unknown unkn own All T unknown 33.6 unknown g/dL MCHC unknown unkn own All T unknown 93.7 unknown fL MCV unknown unkn own All T unknown 0.8 10 unknown MONO_AUT unknown un known 3/UL O_ All MONOCYTES_AU unknown 0.8 10 unknown MO_ unknown unknown TO_ 3/UL All T unknown 10.2 unknown fL MPV unknown unkn own All T unknown 139 unknown mmol/L NA unknown unkn own All T unknown 6.8 10 unknown NEUT_AUT unknown un known 3/UL O_ All NEUTROPHILS_ unknown 6.8 10 unknown NE_ unknown unknown AUTO_ 3/UL All T unknown 216 10 unknown PLT unknown unkn own 3/UL All T unknown 7.3 unknown g/dL PRO_TOTA unknown un known L All T unknown 4.74 unknown RBC unknown unkn own 10 6/UL All T unknown 13.2 unknown % RDW unknown unkn own All T unknown 0.7 unknown mg/dL TOTAL_BI unknown un known LI All T unknown 9.5 unknown WBC unknown unkn own X10 3/UL All red_blood_ce unknown 13.2 unknown % _1030 unknown unknown ll_distributi on_width All mean_corpusc unknown 31.4 unknown pg _1031 unknown unknown ular_hemoglob in_RBC All calcium_seru unknown 8.8 unknown mg/dL _11 unknown unknown m All chloride_ser unknown 102 unknown mmol/L _13 unknown unknown um All albumin_glob unknown 1.0 unknown _146 unknown unknown ulin_ratio_se rum All sodium_serum unknown 139 unknown mmol/L _159 unknown unknown All mean_corpusc unknown 33.6 unknown g/dL _17029 unknown unknown ular_hemoglob in_concentrat ion_rbc All Alanine_amin unknown 35 unknown U/L _1742-6 unknow n unknown otransferase_ Enzymatic_act ivity_volume_ in_Serum_or_P lasma All Albumin_Mass unknown 3.7 unknown g/dL _1751-7 unknow n unknown _volume_in_Se rum_or_Plasma All Albumin_Glob unknown 1.0 unknown _1759-0 unknow n unknown ulin_Mass_Rat io_in_Serum_o r_Plasma All Alkaline_pho unknown 69 unknown U/L _1783-0 unknow n unknown sphatase_Enzy matic_activit y_volume_in_B lood All creatinine_s unknown 1.2 unknown mg/dL _18 unknown unknown antonio All Anion_gap_4_ unknown 12.0 unknown _1863-0 unknow n unknown in_Serum_or_P lasma All Aspartate_am unknown 50 unknown U/L _1920-8 unknow n unknown inotransferas e_Enzymatic_a ctivity_volum e_in_Serum_or _Plasma All Bilirubin.to unknown 0.7 unknown mg/dL _1974- unknow n unknown tal_Mass_volu me_in_Serum_o r_Plasma All albumin_seru unknown 3.7 unknown g/dL _2 unknown unknown m All Calcium_Mole unknown 8.8 unknown mg/dL _1999-8 unknow n unknown s_volume_in_S erum_or_Plasm a All carbon_dioxi unknown 25 unknown mmol/L _2027-9 unknow n unknown de_serum_tota l All Chloride_Mol unknown 102 unknown mmol/L _2074-0 unknow n unknown es_volume_in_ Serum_or_Plas ma All Creatinine_M unknown 1.2 unknown mg/dL _2160-0 unknow n unknown ass_volume_in _Serum_or_Pla sma All Globulin_Mas unknown 3.6 unknown _2336-6 unknow n unknown s_volume_in_S antonio All Glucose_Mass unknown 127 unknown mg/dL _2345-7 unknow n unknown _volume_in_Se rum_or_Plasma All neutrophil_c unknown 6.8 10 unknown _2418 unknown unknown ount_blood 3/UL All lymphocyte_c unknown 1.5 10 unknown _2420 unknown unknown ount_blood 3/UL All monocyte_cou unknown 0.8 10 unknown _2422 unknown unknown nt_blood 3/UL All basophil_cou unknown 0.1 10 unknown _2427 unknown unknown nt_blood 3/UL All mean_platele unknown 10.2 unknown fL _2784 unknown unknown t_volume All anion_gap_se unknown 12.0 unknown _279 unknown unknown rum All eosinophil_c unknown 0.3 10 unknown _285 unknown unknown ount_blood 3/UL All Protein_Mass unknown 7.3 unknown g/dL _2885-2 unknow n unknown _volume_in_Se rum_or_Plasma All Sodium_Moles unknown 139 unknown mmol/L _2951-2 unknow n unknown _volume_in_Se rum_or_Plasma All alkaline_pho unknown 69 unknown U/L _3 unknown unknown sphatase_seru m All globulin_ser unknown 3.6 unknown _3059 unknown unknown um All Urea_nitroge unknown 17 unknown mg/dL _3094-0 unknow n unknown n_Mass_volume _in_Serum_or_ Plasma All mean_corpusc unknown 93.7 unknown fL _315 unknown unknown ular_volume_R BC All potassium_bl unknown 3.1 unknown meq/L _3483 unknown unknown ood All blood_glucos unknown 127 unknown mg/dL _3565 unknown unknown e All protein_tota unknown 7.3 unknown g/dL _36 unknown unknown l_serum All aspartate_am unknown 50 unknown U/L _39 unknown unknown inotransferas e_SGOT_serum All carbon_dioxi unknown 25 unknown mmol/L _3962 unknown unknown de_serum_tota l All alanine_amin unknown 35 unknown U/L _40 unknown unknown otransferase_ SGPT_serum All bilirubin_se unknown 0.7 unknown mg/dL _43 unknown unknown rum_total All Hematocrit_V unknown 44.4 unknown % _4544-3 unknow n unknown olume_Fractio n_of_Blood_by _Automated_co unt All Glomerular_fi unknown 59 unknown mL/min _48642-3 unkno wn unknown ltration_rate _1.73_sq_M.pr edicted_among _non-blacks_V olume_Rate_Ar ea_in_Serum_P lasma_or_Bloo d_by_Creatini ne-based_form ula_MDRD_ All potassium_bl unknown 3.1 unknown meq/L _6298-4 unknow n unknown ood All hematocrit_b unknown 44.4 unknown % _64 unknown unknown lood All hemoglobin_b unknown 14.9 unknown g/dL _65 unknown unknown lood All platelet_cou unknown 216 10 unknown _66 unknown unknown nt 3/UL All Glomerular_F unknown 59 unknown mL/min _66455 unknown unknown iltration_rat e All Leukocytes_v unknown 9.5 unknown _6690-2 unknow n unknown olume_in_Bloo X10 d_by_Automate 3/UL d_count All erythrocyte_ unknown 4.74 unknown _67 unknown unknown RBC_count 10 6/UL All leukocyte_co unknown 9.5 unknown _68 unknown unknown unt_blood X10 3/UL All Basophils_vo unknown 0.1 10 unknown _705-4 unknown unknown lume_in_Blood 3/UL _by_Manual_co unt All eosinophil_c unknown 0.3 10 unknown _712-0 unknown unknown ount_blood 3/UL All Hemoglobin_M unknown 14.9 unknown g/dL _718-7 unknown unknown ass_volume_in _Blood All lymphocyte_c unknown 1.5 10 unknown _732-8 unknown unknown ount_blood 3/UL All monocyte_cou unknown 0.8 10 unknown _743-5 unknown unknown nt_blood 3/UL All neutrophil_c unknown 6.8 10 unknown _752-6 unknown unknown ount_blood 3/UL All Platelet_mea unknown 10.2 unknown fL _776-5 unknown unknown n_volume_Enti tic_volume_in _Blood_by_[facility] All Platelets_vo unknown 216 10 unknown _777-3 unknown unknown lume_in_Blood 3/UL _by_Automated _count All MCH_Entitic_ unknown 31.4 unknown pg _785-6 unknown unknown mass_by_Autom ated_count All MCV_Entitic_ unknown 93.7 unknown fL _787-2 unknown unknown volume_by_Aut omated_count All Erythrocyte_ unknown 13.2 unknown % _788-0 unknown unknown distribution_ width_Ratio_b y_Automated_c ount All Erythrocytes unknown 4.74 unknown _789-8 unknown unknown _volume_in_Bl 10 6/UL ood_by_Automa ted_count All urea_nitroge unknown 17 unknown mg/dL _9 unknown unknown n_blood Social History date description facility [id number]
== END 2020-04-20 | disposition home or self-care (01) ==
LOC: ED 21:59
DX: R10.13 Epigastric pain (principal); M79.601 Pain in right arm; R07.89 Other chest pain; E87.6 Hypokalemia; I10 Essential (primary) hypertension; K21.9 Gastro-esophageal reflux disease without esophagitis; Z79.82 Long term (current) use of aspirin; Z87.891 Personal history of nicotine dependence
CPT/HCPCS: 36415; 80053; 83690; 84484; 85025; 93005; 96374; 99281

== ENCOUNTER 2021-01-19 08:05 | Outpatient (CLI) | payer MEDICARE, OTHER ==
[2021-01-19 08:32] LABS: BASOPHILS # (AUTO) 0.1 10^3/uL (0.0-0.1); BASOPHILS % (AUTO) 0.8 %; EOSINOPHILS # (AUTO) 0.3 10^3/uL (0.0-0.7); EOSINOPHILS % (AUTO) 4.5 %; HCT - HEMATOCRIT 44.4 % (42.0-52.0); HGB - HEMOGLOBIN 14.4 g/dL (14.0-18.0); LYMPHOCYTES # (AUTO) 1.7 10^3/uL (1.5-3.5); MEAN CORPUSCULAR HEMOGLOBIN 30.2 pg (27.0-31.0); MEAN CORPUSCULAR HGB CONC 32.4 g/dL (32.0-36.0); MEAN CORPUSCULAR VOLUME 93.1 fL (80.0-94.0); MEAN PLATELET VOLUME 10.2 fL (7.4-11.4); MONOCYTES # (AUTO) 0.7 10^3/uL (0.0-1.0); NEUTROPHILS # (AUTO) 3.8 10^3/uL (1.5-6.6); NEUTROPHILS % (AUTO) 57.9 %; PLT - PLATELET COUNT 224 10^3/uL (130-450); RED BLOOD COUNT 4.77 10^6/uL (4.70-6.10); RED CELL DISTRIBUTION WIDTH 12.9 % (12.0-15.0); WHITE BLOOD COUNT 6.6 x10^3/uL (4.8-10.8)
[2021-01-19 08:45] LABS: ALBUMIN 3.5 g/dL (3.2-5.5); ALKALINE PHOSPHATASE 63 IU/L (42-121); ALT ALANINE AMINOTRANSFERASE 23 IU/L (10-60); AST ASPARTATE AMINOTRANSFERASE 21 IU/L (10-42); BUN - BLOOD UREA NITROGEN 16 mg/dL (6-20); CALCIUM 9.2 mg/dL (8.5-10.3); CARBON DIOXIDE - CO2 29 mmol/L (21-32); CHLORIDE 102 mmol/L (101-111); CHOL/HDL RATIO 2.3 (<5.0); CHOLESTEROL 133 mg/dL; GFR - MDRD 73 (>89); GLUCOSE 108 mg/dL (70-100); HDL CHOLESTEROL 58 mg/dL; LDL CHOLESTEROL,CALCULATED 63 mg/dL; LDL/HDL RATIO 1.1 (<3.6); POTASSIUM 3.9 mmol/L (3.5-5.0); SODIUM 142 mmol/L (135-145); TRIGLYCERIDES 61 mg/dL; VLDL CHOLESTEROL 12 mg/dL
[2021-01-19 08:56] LABS: THYROID STIMULATING HORMONE 2.07 uIU/mL (0.34-5.60)
[2021-01-19 09:15] LABS: ESTIMATED AVERAGE GLUCOSE 114 mg/dL (70-100); HEMOGLOBIN A1c% 5.6 % (4.27-6.07)
== END 2021-01-19 08:06 | disposition home or self-care (01) ==
LOC: LAB 08:05
PROVIDERS: ATTEND Family Medicine
DX: J34.89 Other specified disorders of nose and nasal sinuses (principal); R09.82 Postnasal drip; C34.90 Malignant neoplasm of unspecified part of unspecified bronchus or lung; Z68.34 Body mass index [BMI] 34.0-34.9, adult; M10.9 Gout, unspecified; I10 Essential (primary) hypertension
CPT/HCPCS: 36415; 80053; 80061; 83036; 83721; 84443; 84550; 85025

== ENCOUNTER 2021-10-08 09:34 | Outpatient (CLI) | payer MEDICARE, OTHER ==
--- NOTE | 2021-10-08 13:03 | XRAY Report ---
PROCEDURE: Chest 2 View X-Ray INDICATIONS: SHORTNESS OF BREATH TECHNIQUE: 2 view(s) of the chest. COMPARISON: 08/19/2021 FINDINGS: Surgical changes and devices: None. Lungs and pleura: Low lung volumes. No dense consolidation. No pleural effusion or pneumothorax. Mediastinum: Mediastinal contours are normal. Heart size is normal. Bones and chest wall: No suspicious bony abnormalities. Soft tissues appear unremarkable. IMPRESSION: Low lung volumes limit evaluation. No pleural effusion or pulmonary consolidation identi fied. Lateral view is also reassuring. Reviewed by: Chun Farley MD on 10/08/2021 1:02 PM PDT Approved by: Chun Farley MD on 10/08/2021 1:02 PM PDT Station ID: [id number]
== END 2021-10-08 09:35 | disposition home or self-care (01) ==
LOC: DI 09:34
PROVIDERS: ATTEND Family Medicine
DX: R06.02 Shortness of breath (principal)

== ENCOUNTER 2022-01-13 08:17 | Outpatient (CLI) | payer MEDICARE, OTHER ==
[2022-01-13 08:43] LABS: BASOPHILS # (AUTO) 0.1 10^3/uL (0.0-0.1); BASOPHILS % (AUTO) 0.9 %; EOSINOPHILS # (AUTO) 0.2 10^3/uL (0.0-0.7); EOSINOPHILS % (AUTO) 3.8 %; HCT - HEMATOCRIT 45.1 % (42.0-52.0); HGB - HEMOGLOBIN 14.7 g/dL (14.0-18.0); LYMPHOCYTES # (AUTO) 1.6 10^3/uL (1.5-3.5); MEAN CORPUSCULAR HEMOGLOBIN 31.1 pg (27.0-31.0); MEAN CORPUSCULAR HGB CONC 32.6 g/dL (32.0-36.0); MEAN CORPUSCULAR VOLUME 95.6 fL (80.0-94.0); MEAN PLATELET VOLUME 10.8 fL (7.4-11.4); MONOCYTES # (AUTO) 0.7 10^3/uL (0.0-1.0); MONOCYTES % (AUTO) 10.3 %; NEUTROPHILS # (AUTO) 3.8 10^3/uL (1.5-6.6); NEUTROPHILS % (AUTO) 59.5 %; PLT - PLATELET COUNT 217 10^3/uL (130-450); RED BLOOD COUNT 4.72 10^6/uL (4.70-6.10); WHITE BLOOD COUNT 6.3 x10^3/uL (4.8-10.8)
[2022-01-13 08:56] LABS: ALBUMIN 3.5 g/dL (3.2-5.5); ALKALINE PHOSPHATASE 70 IU/L (42-121); ALT ALANINE AMINOTRANSFERASE 18 IU/L (10-60); AST ASPARTATE AMINOTRANSFERASE 21 IU/L (10-42); BILIRUBIN,TOTAL 1.1 mg/dL (0.2-1.0); BUN - BLOOD UREA NITROGEN 15 mg/dL (6-20); CARBON DIOXIDE - CO2 32 mmol/L (21-32); CHLORIDE 102 mmol/L (101-111); CHOL/HDL RATIO 2.4 (<5.0); CHOLESTEROL 165 mg/dL; GFR - MDRD 73 (>89); GLUCOSE 92 mg/dL (70-100); HDL CHOLESTEROL 69 mg/dL; LDL CHOLESTEROL,CALCULATED 87 mg/dL; LDL/HDL RATIO 1.3 (<3.6); POTASSIUM 3.6 mmol/L (3.5-5.0); SODIUM 144 mmol/L (135-145); TOTAL PROTEIN 7.1 g/dL (6.7-8.2); TRIGLYCERIDES 46 mg/dL; VLDL CHOLESTEROL 9 mg/dL
[2022-01-13 09:03] LABS: THYROID STIMULATING HORMONE 2.16 uIU/mL (0.34-5.60)
== END 2022-01-13 08:18 | disposition home or self-care (01) ==
LOC: LAB 08:17
PROVIDERS: ATTEND Family Medicine
DX: I10 Essential (primary) hypertension (principal); M10.9 Gout, unspecified; M19.049 Primary osteoarthritis, unspecified hand; Z12.5 Encounter for screening for malignant neoplasm of prostate; C34.90 Malignant neoplasm of unspecified part of unspecified bronchus or lung; N40.0 Benign prostatic hyperplasia without lower urinary tract symptoms; K21.9 Gastro-esophageal reflux disease without esophagitis; R05.9 Cough, unspecified
CPT/HCPCS: 36415; 80053; 80061; 84443; 85025; G0103; 83721; 84153

== ENCOUNTER 2022-04-19 09:37 | Outpatient (CLI) | payer MEDICARE, OTHER ==
[2022-04-19 09:48] LABS: BILIRUBIN,URINE NEGATIVE (NEGATIVE); GLUCOSE, URINE (UA) NEGATIVE (NEGATIVE); KETONES,URINE (UA) NEGATIVE (NEGATIVE); LEUKOCYTE ESTERASE, URINE NEGATIVE (NEGATIVE); NITRITE,URINE NEGATIVE (NEGATIVE); OCCULT BLOOD,URINE NEGATIVE (NEGATIVE); PROTEIN,URINE NEGATIVE (NEGATIVE); UROBILINOGEN,URINE 2 E.U./dL (NORMAL)
[2022-04-19 09:50] LABS: CLARITY,URINE CLEAR (CLEAR)
[2022-04-19 09:56] LABS: BACTERIA,URINE Few /HPF (None Seen); RBC,URINE 0-5 /HPF (0-5); SQUAMOUS EPITHELIAL CELL,UR RARE Squamous (<= Few); WBC,URINE 0-3 /HPF (0-3)
== END 2022-04-19 09:38 | disposition home or self-care (01) ==
LOC: LAB 09:37
PROVIDERS: ATTEND Family Medicine
DX: R82.998 Other abnormal findings in urine (principal)
CPT/HCPCS: 81001; 87086

== ENCOUNTER 2022-05-26 20:09 | Outpatient (CLI) | payer MEDICARE, OTHER | END 2022-05-26 23:59 | disposition critical access hospital (66) | LOC: EMS 20:09 | DX: S09.92XA Unspecified injury of nose, initial encounter (principal); W01.198A Fall on same level from slipping, tripping and stumbling with subsequent striking against other object, initial encounter; Y92.002 Bathroom of unspecified non-institutional (private) residence as the place of occurrence of the external cause | CPT/HCPCS: A0425; A0429 ==

== ENCOUNTER 2022-05-26 20:20 | Emergency (ER) | payer MEDICARE, OTHER ==
--- NOTE | 2022-05-26 20:54 | ED Physician Documentation ---
PD HPI HEAD INJURY - Stated complaint Stated Complaint: GLF, HIT NOSE, BACK PAIN - Chief complaint Chief Complaint: Trauma Hd/Nk - History obtained from History obtained from: Patient - Additional information Additional information: The patient comes to the emergency department with chief complaint of ground- level fall and nosebleed. He was ambulating in his house and had just walked into the bathroom to urinate when he lost his balance and fell, striking his face on the edge of the shower antonio. The patient states he has been drinking tonight and that he was a bit "tipsy". The patient states that he did not lose consciousness. He really feels it is mainly his nose that was injured and has noticed some swelling along the left side. He has had a nosebleed since the incident, mostly coming out of the left side. The patient denies any pain in his spine. No extremity pain. No rib pain. No abdominal pain. The patient denies any other complaints at this time. He is not on any anticoagulation. PD PAST MEDICAL HISTORY - Past Medical History Cardiovascular: Hypertension Respiratory: Other Neuro: None Endocrine/Autoimmune: None GI: GERD, Hemorrhoids : None HEENT: Chronic vision loss, Chronic hearing loss Psych: None Musculoskeletal: Osteoarthritis, Gout Derm: None - Past Surgical History Past Surgical History: Yes General: Colonoscopy Cardiovascular: Lobectomy - Present Medications Home Medications: Ambulatory Orders Medication Instructions Recorded Confirmed Aspirin [Aspir-Low] 1 tab PO DAILY 02/15/16 04/19/20 Cetirizine [ZyrTEC] 1 tab PO DAILY 02/15/16 04/19/20 Omeprazole 1 tab PO DAILY 02/15/16 04/19/20 Potassium Chloride 1 tab PO BID 02/15/16 04/19/20 allopurinoL [Allopurinol] 300 mg PO DAILY 02/15/16 04/19/20 Terazosin HCl 1 cap PO DAILY 08/12/17 04/19/20 Valsartan [Diovan] 80 mg PO DAILY 04/19/20 04/19/20 Amlodipine Besylate [Norvasc] 2.5 mg PO 05/26/22 05/26/22 Finasteride [Proscar] 5 mg PO DAILY 05/26/22 05/26/22 Fluticasone [Flonase] 1 sprays DEDE DAILY 05/26/22 05/26/22 HYDROcod/ACETAM 5/325 [Riviera 5/325] 1 - 2 tablet PO Q6H PRN #14 tablet 05/26/22 Potassium Chloride [Klor-Con 10] 10 meq PO 05/26/22 05/26/22 Sildenafil Citrate 100 mg PO 05/26/22 05/26/22 hydroCHLOROthiazide [Hydrodiuril] 25 mg PO DAILY 05/26/22 05/26/22 - Allergies Allergies/Adverse Reactions: Allergies Allergy/AdvReac Type Severity Reaction Status Date / Time ranitidine Allergy Cramps Verified 05/26/22 20:27 - Social History Does the pt smoke?: No Smoking Status: Never smoker Does the pt drink ETOH?: Yes Does the pt have substance abuse?: No - Immunizations Immunizations are current?: Yes Immunizations: TDAP current <10years - POLST Patient has POLST: No PD ED PE NORMAL - Vitals Vital signs reviewed: Yes - General General: Alert and oriented X 3, No acute distress, Well developed/nourished - HEENT HEENT: PERRL, EOMI, Moist mucous membranes, Dentition benign (No trauma to teeth. Patient does have poor dentition chronically. Some bloody residue in the mouth Which patient attributes to blood leaking down his throat from his epistaxis), Other (Moderate edema over nasal bridge, slightly worse on the left, No deformity. Nasal clamps in place; fresh bloody residue bilaterally, but no active bleeding. ) - Neck Neck: Supple, no meningeal sign, No bony TTP - Cardiac Cardiac: Strong equal pulses - Respiratory Respiratory: No respiratory distress - Abdomen Abdomen: Soft, Non tender, Non distended - Derm Derm: Normal color, Warm and dry, No rash - Extremities Extremities: No deformity - Neuro Neuro: Alert and oriented X 3 - Psych Psych: Normal mood, Normal affect Results - Vitals Vitals: Vital Signs - 24 hr 05/26/22 05/26/22 05/26/22 20:25 20:28 22:26 Temperature 36.4 C L Heart Rate 108 H 106 H 82 Respiratory 19 20 18 Rate Blood Pressure 128/70 123/61 O2 Saturation 94 95 94 Oxygen O2 Source Room air - Rads (name of study) Maxillofacial CT Relevant Findings:: Final report received, See rad report (Mildly comminuted displaced nasal bone fracture likely also involving the bony nasal septum and frontal process of the maxilla.) PD Medical Decision Making - ED course Complexity details: reviewed results, re-evaluated patient, considered differential, d/w patient, d/w family ED course: The patient was given oxymetazoline nasally and was sent for CT scan of the face. He was not actively bleeding at the time of my examination but clearly has been bleeding very recently.The patient was doing better after oxymetazoline. His CT showed nasal bone fracture, not surprisingly, and a fracture of the frontal maxillary process. I discussed with the patient that he should follow-up with Dr. Matthews to see if there are any further recommenda tions. At this point, we will treat him symptomatically And he is stable for discharge home. Departure - Departure Disposition: 01 Home, Self Care Clinical Impression: Ground-level fall Nasal bone fracture Qualifiers: Encounter type: initial encounter Fracture type: closed Qualified Code(s): S02.2XXA - Fracture of nasal bones, initial encounter for closed fracture Facial trauma Qualifiers: Encounter type: initial encounter Qualified Code(s): S09.93XA - Unspecified injury of face, initial encounter Alcohol intoxication Qualifiers: Complication of substance-induced condition: uncomplicated Qualified Code(s): F10.920 - Alcohol use, unspecified with intoxication, uncomplicated Condition: Stable Instructions: ED Alcohol Intoxication, ED Fx Nasal Conf W X Ray Follow-Up: NAY MATTHEWS [Physician No Access] - Prescriptions: HYDROcod/ACETAM 5/325 [Riviera 5/325] 1 - 2 tablet PO Q6H PRN #14 tablet PRN Reason: Pain Comments: Your CT scan shows fractures through your nasal bone and the edge of your left cheekbone. No other traumatic findings are noted. You will have some swelling and oozing from your nose until the tears scab over and begin to heal. You should follow-up with Dr. Romeo the oral maxillofacial surgeon to talk about whether any further treatment is needed. However, most nasal bone fractures must simply heal on their own and this takes several weeks. You may take the pain medication as needed according to the schedule given. A prescription has been electronically transmitted to the [facility] pharmacy in [place] at your request. Discharge Date/Time: 05/26/22 22:33
[2022-05-26] MEDS ORDERED: OXYMETAZOLINE HCL 100 SPRAYS BOTTLE NAS STA (21:18)
--- NOTE | 2022-05-26 21:41 | CT Report ---
PROCEDURE: MAXILLOFACIAL WO INDICATIONS: GLF, nasal/facial trauma, epistaxis TECHNIQUE: Noncontrast 1.5 mm thick axial images acquired from the mandible through the frontal sinuses, with co kimberly and sagittal reformatting. For radiation dose reduction, the following was used: automated ex posure control, adjustment of mA and/or kV according to patient size. COMPARISON: CT sinuses 08/05/2019 FINDINGS: Image quality: Good Bones: Mildly comminuted and displaced nasal bone fracture, with overlying soft tissue swelling and g as. Possible minimally displaced fracture of the bony nasal septum, leftward displacement overall sim ilar to prior. Fracture probably also extends into the frontal process of the maxilla. Similar overall sequelae of dental disease and maxillary defect along right alveolar ridge. The gissel ble appears intact. Pterygoid plates appear intact. The zygomatic arches are intact. Slight deformity of the right lateral maxillary sinus wall is similar to prior. Orbital alves appear intact. Sinuses and mastoids: Similarly hypoplastic mastoids. Partial sinus opacification involving the ethmo id air cells, maxillary sinuses, likely chronic sinus disease with component of acute hemorrhage.. So me of this debris extends into the pharynx. Soft tissues: Orbits appear unremarkable. No large hematoma or abscess. Brain: Unremarkable, partially visualized IMPRESSION: Mildly comminuted displaced nasal bone fracture, likely also involving the bony nasal septum and fron christian process of the maxilla. The pterygoid plates, zygomatic arches, and mandible are intact. Other ch ronic deformity/findings described above are stable compared to July 2019 imaging. Partial opacification of the paranasal sinuses, likely secondary to chronic sinus disease is seen pre viously with some acute hemorrhage, debris extends into the pharynx spaces. Reviewed by: Chun Farley MD on 05/26/2022 9:40 PM PDT Approved by: Chun Farley MD on 05/26/2022 9:40 PM PDT Station ID: [id number]
[2022-05-26] MEDS ORDERED: HYDROcod/ACET 5/325 Prepack 4 PO STA (22:19)
[2022-05-26] MEDS ORDERED: HYDROcod/ACETAM 5/325 MG TABLET PO STA (22:19)
[2022-05-26 22:27] VITALS: BP 123/61
== END 2022-05-26 22:33 | disposition home or self-care (01) ==
LOC: EDUNIT# → ED 20:20
DX: S02.2XXA Fracture of nasal bones, initial encounter for closed fracture (principal); S09.93XA Unspecified injury of face, initial encounter; W18.39XA Other fall on same level, initial encounter; Y93.E8 Activity, other personal hygiene; Y92.002 Bathroom of unspecified non-institutional (private) residence as the place of occurrence of the external cause; F10.129 Alcohol abuse with intoxication, unspecified
CPT/HCPCS: 70486; A9270

== ENCOUNTER 2022-05-26 20:21 | Emergency (ER) | payer MEDICARE, OTHER | END 2022-05-26 20:30 | disposition home or self-care (01) | LOC: ED 20:21 | DX: Z53.21 Procedure and treatment not carried out due to patient leaving prior to being seen by health care provider (principal) | CPT/HCPCS: 99284 ==

== ENCOUNTER 2022-10-07 07:55 | Outpatient (CLI) | payer MEDICARE, OTHER ==
[2022-10-07 08:05] LABS: BASOPHILS # (AUTO) 0.1 10^3/uL (0.0-0.1); BASOPHILS % (AUTO) 0.8 %; EOSINOPHILS # (AUTO) 0.2 10^3/uL (0.0-0.7); EOSINOPHILS % (AUTO) 3.3 %; HCT - HEMATOCRIT 47.1 % (42.0-52.0); LYMPHOCYTES # (AUTO) 1.7 10^3/uL (1.5-3.5); LYMPHOCYTES % (AUTO) 26.2 %; MEAN CORPUSCULAR HEMOGLOBIN 30.8 pg (27.0-31.0); MEAN CORPUSCULAR HGB CONC 31.8 g/dL (32.0-36.0); MEAN CORPUSCULAR VOLUME 96.7 fL (80.0-94.0); MEAN PLATELET VOLUME 10.1 fL (7.4-11.4); MONOCYTES # (AUTO) 0.6 10^3/uL (0.0-1.0); MONOCYTES % (AUTO) 9.2 %; NEUTROPHILS # (AUTO) 3.8 10^3/uL (1.5-6.6); PLT - PLATELET COUNT 197 10^3/uL (130-450); RED BLOOD COUNT 4.87 10^6/uL (4.70-6.10); RED CELL DISTRIBUTION WIDTH 13.4 % (12.0-15.0); WHITE BLOOD COUNT 6.3 x10^3/uL (4.8-10.8)
[2022-10-07 08:40] LABS: THYROID STIMULATING HORMONE 1.82 uIU/mL (0.34-5.60)
[2022-10-07 08:58] LABS: ALBUMIN 3.7 g/dL (3.2-5.5); ALBUMIN/GLOBULIN RATIO 1.2 (1.0-2.2); ALKALINE PHOSPHATASE 70 IU/L (42-121); ALT ALANINE AMINOTRANSFERASE 14 IU/L (10-60); AST ASPARTATE AMINOTRANSFERASE 16 IU/L (10-42); BILIRUBIN,TOTAL 0.7 mg/dL (0.2-1.0); BUN - BLOOD UREA NITROGEN 17 mg/dL (6-20); CALCIUM 9.3 mg/dL (8.5-10.3); CARBON DIOXIDE - CO2 33 mmol/L (21-32); CHLORIDE 104 mmol/L (101-111); CHOL/HDL RATIO 2.6 (<5.0); CHOLESTEROL 159 mg/dL; CREATININE 1.1 mg/dL (0.6-1.3); GFR - MDRD 65 (>89); GLUCOSE 97 mg/dL (74-104); HDL CHOLESTEROL 62 mg/dL; LDL CHOLESTEROL,CALCULATED 85 mg/dL; LDL/HDL RATIO 1.4 (<3.6); POTASSIUM 4.2 mmol/L (3.5-4.5); SODIUM 142 mmol/L (135-145); TOTAL PROTEIN 6.8 g/dL (6.4-8.9); TRIGLYCERIDES 60 mg/dL (48-352); URIC ACID 4.8 mg/dL (4.4-7.6); VLDL CHOLESTEROL 12 mg/dL
== END 2022-10-07 07:56 | disposition home or self-care (01) ==
LOC: LAB 07:55
PROVIDERS: ATTEND Family Medicine
DX: G25.81 Restless legs syndrome (principal); M10.9 Gout, unspecified; N25.9 Disorder resulting from impaired renal tubular function, unspecified; N40.0 Benign prostatic hyperplasia without lower urinary tract symptoms; K21.9 Gastro-esophageal reflux disease without esophagitis; I10 Essential (primary) hypertension; R06.02 Shortness of breath
CPT/HCPCS: 36415; 80053; 80061; 83721; 84443; 84550; 85025

== ENCOUNTER 2022-11-18 10:04 | Outpatient (CLI) | payer MEDICARE, OTHER ==
--- NOTE | 2022-11-18 10:42 | Sleep Patient Instructions ---
Sleep Center Visit Summary - Patient Visit Information Reason for Visit: Initial consult for evaluation of sleep disordered breathing and other sleep issues. - Patient Instructions Instructions Attached: Sleep Clinic Visit, Sleep Study Additional Instructions: You will be completing a sleep study, either an in-lab polysomnography (PSG) or home sleep study (HST). You will follow-up in the sleep care office after the sleep study is completed to hear the results and talk about therapy, if needed. You will be called by our office staff to schedule this appointment, but you may contact us with any questions. - Clinic Information Contact: [facility] [address] [place] [address] [email or web address] T: [phone]
--- NOTE | 2022-11-18 10:48 | SLEEP CARE CONSULTATION ---
Information from patient questionnaire entered by Felipa Hendrickson. I have reviewed and concur with the information entered by Felipa Hendrickson. This document represents the service I personally performed and the decisions made by me, Irasema Rios ARNP. History of Present Illness Service Date and Time: 11/18/2022 1004 Reason for Visit: New patient Chief Complaint: reports: Frequent awakenings at night Date of Onset: 12-18 MONTHS Usual bedtime: 9-10 PM Time it takes to fall asleep: VARIES Snores at night: No Observed to quit breathing while asleep: No Sleeps alone due to snoring: No Number of times waking at night: 4-5, varies Reasons for waking at night: reports: Pain, Other (RESTLESS LEGS). denies: Choking, Gasping for air Toss, Turn, or Twitch while sleeping: No Recalls having dreams: Yes Usually gets out of bed at: 7-8 AM Feels refreshed in the morning: No Morning headache: No Sleepy or fatigued during the day: Yes Ever fallen asleep while driving: No Takes day naps: No Dreams during day naps: No Prior sleep studies: No Additional HPI information: I had the pleasure of seeing LEE FANG today regarding the possibility of him having a sleep disorder. His current complaint is of frequent night awakenings. He states he had trouble sleeping at night. He states he falls asleep well but will then wake up and not be able to get back to sleep. He sometimes only gets 3 hours of sleep at night. He states his has not noticed if he snored or had pauses in breathing. He states he has restless legs too and is treated with gabapentin, 100 mg. He states he does not always wake up feeling rested. 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 He says he and his have been having stress due to family issues. He will sometimes feel anxious at night and this will also interrupt his sleep. He has gained some weight because he has not been being as active in last few years. 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 Patient is and lives in [place]. Have you smoked in the past 12 months: No Cigarettes per day (20/pack): 20 Years of smokin Quit date: 2018 Smoking Pack Years: 18.0 Alcohol use: Yes Alcohol amount and frequency: 2 NIGHTLY Caffeine use: No Family History Family history of sleep disordered breathing: No Allergies and Home Medications Known drug allergies: Yes (ranitidine) Drug allergies reviewed: Yes Home medication list reviewed: Yes Allergy and home medication list: Allergies ranitidine Allergy (Verified 11/17/22 12:32) Cramps Home Medications Medication Instructions Recorded Confirmed Last Taken Type Cetirizine [ZyrTEC] 1 tab PO DAILY 02/15/16 11/18/22 02/15/16 History Omeprazole 1 tab PO DAILY 02/15/16 11/18/22 02/15/16 History allopurinoL [Allopurinol] 300 mg PO DAILY 02/15/16 04/19/20 02/15/16 History Terazosin HCl 1 cap PO DAILY 08/12/17 11/18/22 Unknown History Valsartan [Diovan] 80 mg PO DAILY 04/19/20 04/19/20 Unknown History Amlodipine Besylate [Norvasc] 2.5 mg PO DAILY 05/26/22 11/18/22 Unknown History Fluticasone [Flonase] 1 sprays DEDE DAILY 05/26/22 11/18/22 Unknown History hydroCHLOROthiazide [Hydrodiuril] 25 mg PO DAILY 05/26/22 05/26/22 Unknown History Gabapentin [Neurontin] See Rx Instructions .ROUTE .COMPLEX 11/18/22 11/18/22 Unknown History Multivitamin See Rx Instructions .ROUTE .COMPLEX 11/18/22 11/18/22 Unknown History Potassium Chloride [Klor-Con M10] See Rx Instructions .ROUTE .COMPLEX 11/18/22 11/18/22 Unknown History Review of Systems Weight gain over past 5 years: 20 Cardiovascular: reports: high blood pressure Respiratory: reports: shortness of breath, wheeze, sputum production Gastrointestinal: denies: heartburn Neurological: reports: gait or balance problems. denies: headaches Psychiatric: reports: claustrophobia. denies: anxiety, depression Ear/Nose/Throat: reports: nasal congestion, sinus problems, dry mouth/throat, injury to nose, wisdom teeth removed. denies: tonsillectomy (has had adenoids removed as a child) Endocrine: reports: sluggishness Musculoskeletal: reports: muscle pain or cramping Immunologic: reports: sneezing, allergies to food or environment Physical Exam Vital signs obtained and entered by: FELIPA Hills MA Blood Pressure: 122/70 (LEFT ARM) Cuff size: regular Heart Rate: 92 O2 Saturation: 98 Height: 5 ft 10 in Weight: 260 lb Body Mass Index: 37.3 BMI Classification: Obese Neck circumference: 19 Mouth and throat: narrow oropharynx Soft palate: long Hard palate: normal Uvula visualization: 25% Mallampati Class III Tongue: enlarged in size with teeth lincoln on lateral edges Tonsils: small Neck: normal w/o lymphadenopathy or thyromegaly Heart: regular rate and rhythm Lungs: clear bilaterally Impression and Plan 1. Suspected Obstructive Sleep Apnea-Hypopnea Syndrome, as suggested by a history of frequent awakening during the night, unrefreshed sleep, cognitive impairment, and excessive daytime sleepiness. He has a history of hypertension, restless legs syndrome and mild emphysema. Narrow oropharynx and obesity are common predisposing factors for obstructive sleep apnea-hypopnea syndrome. I recommend proceeding to polysomnography to confirm the diagnosis and to assess severity. If the patient has significant sleep disordered breathing, a manual CPAP titration study will also be performed to find the optimal treatment pressure. I informed the patient of what the sleep studies involve and after some discussion, obtained agreement to proceed. The pathophysiology of obstructive sleep apnea-hypopnea syndrome was discussed with the patient and health risks of cardiovascular and cerebrovascular disease if not treated. Risks of drowsy driving discussed in detail and patient advised to avoid long distance driving and to ticket puller at the first sign of drowsiness. Patient agreed to plan. * Schedule polysomnography. * Avoid long distance driving or driving when feeling sleepy. * Avoid alcohol, sedative and muscle relaxant around bedtime. * Attempt to lose weight. * Review instructions provided by trained office staff on how to prepare for the sleep study. * Return for follow-up after sleep study completed. Counseling Topics: Weight loss health impact Plan: PSG Visit Type: In Office Time Spent with Patient (minutes): 30 Provider Statement: I spent 100% of the Face to Face Visit with the patient with greater than 50% spent counseling the patient and coordination of care.
[2022-11-18 10:56] VITALS: BP 122/70; O2SAT 98
== END 2022-11-18 10:05 | disposition home or self-care (01) ==
LOC: SC 10:04
PROVIDERS: ATTEND Nurse Practitioner Family
DX: G47.10 Hypersomnia, unspecified (principal); R41.89 Other symptoms and signs involving cognitive functions and awareness; G47.8 Other sleep disorders; I10 Essential (primary) hypertension; J43.9 Emphysema, unspecified; G25.81 Restless legs syndrome; E66.9 Obesity, unspecified; Z68.37 Body mass index [BMI] 37.0-37.9, adult
CPT/HCPCS: 99203; G0463; 99212

== ENCOUNTER 2022-12-19 19:28 | Outpatient (CLI) | payer MEDICARE, OTHER | END 2022-12-19 19:29 | disposition home or self-care (01) | LOC: SC 19:28 | PROVIDERS: ATTEND Nurse Practitioner Family | DX: G47.33 Obstructive sleep apnea (adult) (pediatric) (principal); R09.02 Hypoxemia; E66.9 Obesity, unspecified; Z68.37 Body mass index [BMI] 37.0-37.9, adult | CPT/HCPCS: 95810 ==

== ENCOUNTER 2022-12-27 15:52 | Outpatient (CLI) | payer MEDICARE, OTHER ==
--- NOTE | 2022-12-27 15:09 | SLEEP CARE CONSULTATION ---
Information from patient questionnaire entered by Felipa Hendrickson. I have reviewed and concur with the information entered by Felipa Hendrickson. This document represents the service I personally performed and the decisions made by , Irasema Rios ARNP. History of Present Illness Service Date and Time: 12/27/2022 1440 Accompanied by: Spouse Initial Dupree Sleepiness Scale score: 11 (11/07/22) Current Dupree Sleepiness Scale score: 13 (12/27/22) Additional HPI information: LEE FANG returns via telephone appointment for follow up and results of the recently performed polysomnography. The sleep study showed extremely severe obstructive sleep apnea with an average AHI of 129.9 and saima oxygen saturation of 68%. I explained the pathophysiology behind obstructive sleep apnea. We then spent quite a bit of time discussing different treatment options. For mild obstructive sleep apnea, surgery and oral appliance are alternatives to nasal CPAP therapy but in moderate or severe cases, nasal CPAP is the most effective and reliable treatment. I reviewed the impact of weight changes on sleep apnea and strongly recommended losing weight. After some discussion, the patient opted to go with the nasal CPAP therapy. Nasal autoCPAP set at 5-20 cmH20 will be ordered with rationale explained. A manual titration study will be ordered if unable to find optimal pressure with office adjustments. I explained how CPAP machine works and what to expect when using the machine. Using CPAP every night in order to get used to it was emphasized. Patient advised to put CPAP mask on before getting into bed so as not to fall asleep without CPAP. To assist acclimation to CPAP use, it could also be used for a short time during day while reading or watching TV. The patient was instructed to call the CPAP supplier to discuss any mechanical problem that may occur. If the mask given is uncomfortable or is difficult to keep on through the night even with adjustment, contact the CPAP supplier as many will replace with another mask style if notified before 30 days. If snoring or perceives is not getting enough air or too much air from the machine, notify this office. Patient counseled not drink alcohol less than 4 hours before bedtime as it can increase snoring and apnea. Patient was cautioned about risks of drowsy driving until sleepiness symptoms resolve. Patient denies drowsy driving. Sleep Study - Results Type of Sleep Study: Polysomnography (COMPLETED 12/19/22) Prior sleep studies: No Polysomnography/Home Sleep Study results: IMPRESSION: The quality of the study is good. The patient had poor sleep effic iency because the patient was awake almost throughout the night. The sleep architecture was abnormal for sleep fragmentation and lack of slow wave sleep (N3). Respiratory monitoring showed very severe obstructive sleep apnea-hypopnea (AHI = 129.9) associated with frequent arousals, oxyhemoglobin desaturation and moderate hypoxia (saima oxygen saturation of 68%). Baseline oxygen saturation was also low. The patient did not sleep supine during this study (supine AHI = 0 ; non-supine = 129.85). Snore was light to moderate in intensity. There was no significant periodic leg movement of sleep. Cardiac rhythm was normal sinus rhythm with occasional premature atrial contractions. No abnormal behavior (parasomnia) observed during the night. Allergies and Home Medications Known drug allergies: Yes (as listed) Drug allergies reviewed: Yes Home medication list reviewed: Yes (no changes) Allergy and home medication list: Allergies ranitidine Allergy (Verified 11/18/22 10:20) Cramps Review of Systems Review of systems same as previous: Yes (no changes) Physical Exam Vital signs obtained and entered by: FELIPA Hills MA Blood Pressure: 145/84 (PER PT 80 SOMTHING) Height: 5 ft 10 in (PER PT) Weight: 250 lb (PER PT) Body Mass Index: 35.9 BMI Classification: Obese Impression and Plan 1. Obstructive Sleep Apnea-Hypopnea Syndrome, extremely, with lowest oxygen saturation of 68%. Obviously this is the cause of the patients symptoms of unrefreshed sleep, and excessive daytime sleepiness. Positive pressure therapy could benefit hypertension. I reviewed that due to his apnea severity that I recommended he use a CPAP. He would like to review his sleep study on his own before he agrees to type of therapy. 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 He said it was okay for his to sign for a copy of his sleep study in lieu of him because he would not be there to sign for it. I let him know we would see what we can do and wait to hear back from him. He voiced understanding. 2. Hypoxemia, moderate, with a saima oxygen saturation of 68% and 128 minutes spent under 90%. The baseline oxygen saturation was low normal with an average oxygen saturation of 85%. 3. Obesity, unspecified. Currently patients BMI is 35.9. Obesity increases the risk of apnea, CPAP pressure requirements and overall health risks especially cardiovascular and diabetes. Thus patient is advised to lose weight. * Patient will call with choice to start CPAP therapy or not * Attempt to lose weight. * Avoid alcohol consumption near bedtime. * Return will depend on patient choice. Counseling Topics: Weight loss health impact Visit Type: Telehealth Phone Video Type: Kwasi Patient Location: Home Other Participants: Spouse/Significant Other Location of Provider: Office Patient agrees and consents to this telehealth visit type: Yes Patient agrees to have their insurance billed: Yes Time Spent with Patient (minutes): 19 Provider Statement: I spent 100% of the Telehealth Phone Call with the patient with greater than 50% spent counseling the patient and coordination of care.
[2022-12-27 15:10] VITALS: BP 145/84
== END 2022-12-27 15:53 | disposition home or self-care (01) ==
LOC: SC 15:52
PROVIDERS: ATTEND Nurse Practitioner Family
DX: G47.33 Obstructive sleep apnea (adult) (pediatric) (principal); R09.02 Hypoxemia; E66.9 Obesity, unspecified; Z68.35 Body mass index [BMI] 35.0-35.9, adult
CPT/HCPCS: 99442

== ENCOUNTER 2023-02-28 12:35 | Outpatient (CLI) | payer MEDICARE, OTHER ==
--- NOTE | 2023-02-28 13:14 | Sleep Patient Instructions ---
Sleep Center Visit Summary - Patient Visit Information Reason for Visit: First Compliance with PAP therapy - Patient Instructions Additional Instructions: You were here for follow up of CPAP therapy. You will be continued on CPAP therapy with pressure at 5-10 cmH2O. Please let us know if the pressure change is uncomfortable and we can make further adjustments of the pressure. You should follow up with sleep care in 1-2 months. You may contact us sooner for any questions or concerns. - Clinic Information Contact: [facility] [address] [place] [address] [email or web address] T: [phone]
--- NOTE | 2023-02-28 13:25 | SLEEP CARE CONSULTATION ---
Information from patient questionnaire entered by Felipa Hendrickson. I have reviewed and concur with the information entered by Felipa Hendrickson. This document represents the service I personally performed and the decisions made by , Irasema Rios ARNP. History of Present Illness Service Date and Time: 02/28/2023 1235 Previous diagnosis: Extremely Severe, Obstructive Sleep Apnea-Hypopnea Syndrome AHI: 129.9 (12/2022) Reason for follow up: first compliance Equipment type: CPAP (RESMED Airsense 11, s/u 01/24/2023, NEED MACHINE) Equipment obtained from: Other ([facility]; getting supplies) Mask style: Full face Mask brand: [id number] Siesta Backup mask available: No (will keep old mask when replaced) Last cushion change: 1 month Prior sleep studies: No Type of Sleep Study: Polysomnography (COMPLETED 12/19/22) HPI additional information: LEE FANG was diagnosed to have extremely severe, AHI 129.9, obstructive sleep apnea-hypopnea syndrome and returned today for CPAP therapy first compliance follow-up. Sleep Study - Results Type of Sleep Study: Polysomnography (COMPLETED 12/19/22) Prior sleep studies: No CPAP Compliance Data - Data Reviewed with Patient Average duration of nightly device use: 9 hours 46 minutes Compliance rate %: 100 (30/30 days used) Current pressure setting (cmH2O): 5-20 (median 5.7, avg 7.1, max 8) Average residual AHI: 0.8 Central apnea: 0 Obstructive apnea: 0.4 Hypopnea: 0.3 Average large leak: 2.4 L/min Subjective Patient concerns: reports: mask discomfort, air blowing in eyes, other (swelling around eyes; headaches from face discomfort). denies: aerophagia, mask leak noise, condensation in mask/hose, nasal congestion, dry mouth, nose, throat, epistaxis Observed to snore while using device: No Current pressure setting perceived as: comfortable On therapy, patient: reports: sleeping better, awakening more refreshed, being more awake and alert during the day, more rested overall, other (not dozing off during day as often). denies: drowsiness while driving Initial [place] Sleepiness Scale score: 11 (11/07/22) Current [place] Sleepiness Scale score: 5 (02/28/23) Allergies and Home Medications Known drug allergies: Yes (as listed) Drug allergies reviewed: Yes Home medication list reviewed: Yes (no changes) Allergy and home medication list: Allergies ranitidine Allergy (Verified 02/24/23 15:37) Cramps Review of Systems Review of systems same as previous: Yes (NO CHANGE) Physical Exam Vital signs obtained and entered by: FELIPA Hills MA Blood Pressure: 167/101 (LEFT ARM) Cuff size: regular Heart Rate: 91 O2 Saturation: 90 Height: 5 ft 10 in (PER PT) Weight: 264 lb 3.36 oz Body Mass Index: 37.9 BMI Classification: Obese Impression and Plan 1. Obstructive Sleep Apnea-Hypopnea Syndrome, extremely severe, with good treatment compliance and good apnea control. On CPAP therapy, the patient has better sleep quality and is more rested overall. Patient has significant improvement of his sleep apnea and is happy with CPAP therapy. The patients pressure will be changed to autoCPAP 5-10 cmH20 to reflect pressure being used. Patient advised to contact me if pressure change is uncomfortable so that it can be adjusted. Goals for apnea control discussed. He does get some swelling mainly on the 1 side of his face from wearing the mask. He states sometimes he feels like his face is inflamed when using the mask. He also has claustrophobia issues and has to take the mask off at some point for a break and to wash his face, then he can put the mask back on to go back to sleep. Patient's apnea severity and rationale for treatment to reduce apnea, improve sleep quality and reduce cardiovascular and cerebrovascular events was reviewed. I also reviewed the benefit of consistent device use of CPAP for hypertension. 2. Obesity, unspecified. Currently patients BMI is 37.9. Obesity increases the risk of apnea, CPAP pressure requirements and overall health risks especially cardiovascular and diabetes. Thus patient is advised to lose weight. 3. Elevated blood pressure in patient with Hypertension. * Change auto CPAP pressure to 5-10 cmH2O * Notify me if snoring with mask or feeling that the pressure is too much or too little * Attempt to lose weight * Call this office if any problems using CPAP * Return for follow up in 1-2 months, or sooner if concerns arise Adjust device pressure to (cmH2O): 5-10 Counseling Topics: Spare mask, Weight loss health impact Follow up with Sleep Care in: 1-2 months Visit Type: In Office Time Spent with Patient (minutes): 28 Provider Statement: I spent 100% of the Face to Face Visit with the patient with greater than 50% spent counseling the patient and coordination of care.
[2023-02-28 14:00] VITALS: BP 167/101; O2SAT 90
== END 2023-02-28 12:36 | disposition home or self-care (01) ==
LOC: SC 12:35
PROVIDERS: ATTEND Nurse Practitioner Family
DX: G47.33 Obstructive sleep apnea (adult) (pediatric) (principal); E66.9 Obesity, unspecified; Z68.37 Body mass index [BMI] 37.0-37.9, adult; R03.0 Elevated blood-pressure reading, without diagnosis of hypertension
CPT/HCPCS: 99213; G0463; 99212

== ENCOUNTER 2023-04-15 14:04 | Emergency (ER) | payer MEDICARE, OTHER ==
--- NOTE | 2023-04-15 17:30 | XRAY Report ---
PROCEDURE: Knee 4+V RT INDICATIONS: fell, sharp pain, can't bear weight TECHNIQUE: 4 views of the knee(s) were acquired. COMPARISON: None. FINDINGS: Bones: No fractures or dislocations. No suspicious bony lesions. Degenerative changes are seen, inc luding an enthesophyte along the superior aspect of the patella on the lateral view. The patella is mildly subluxed laterally. Soft tissues: No significant knee joint effusion. No suspicious soft tissue calcifications or masses . IMPRESSION: The patella is mildly subluxed laterally. No large joint effusion. If it would be helpful for clinical management decision making, please consider a dedicated, schedule d knee MRI for further evaluation (assuming that there is no contraindication). Reviewed by: Anders Montague MD on 04/15/2023 4:28 PM [facility] Approved by: Anders Montague MD on 04/15/2023 4:28 PM [facility] Station ID: [id number]
--- NOTE | 2023-04-15 18:13 | ED Physician Documentation ---
History of Present Illness - Stated complaint Stated Complaint: RT KNEE INJ - Chief complaint Chief Complaint: Trauma Ext - History obtained from History obtained from: Patient - History of Present Illness Timing: Today Pain level max: 4 Pain level now: 4 - Additonal information Additional information: 77-year-old male states that he was walking today when he tripped fell and landed on the right knee. Since that time he has had pain to the medial aspect of the right knee. He has been able to bear weight, but worse with movement, better with rest. Not on blood thinners. No head, neck, back pain. No head injury. No hip pain. No other injuries. No bleeding. Review of Systems Neurologic: denies: Headache, Head injury PD PAST MEDICAL HISTORY - Past Medical History Cardiovascular: Hypertension Respiratory: Other Neuro: None Endocrine/Autoimmune: None GI: GERD, Hemorrhoids : None HEENT: Chronic vision loss, Chronic hearing loss Psych: None Musculoskeletal: Osteoarthritis, Gout Derm: None - Past Surgical History Past Surgical History: Yes General: Colonoscopy Cardiovascular: Lobectomy - Present Medications Home Medications: Ambulatory Orders Medication Instructions Recorded Confirmed Cetirizine [ZyrTEC] 1 tab PO DAILY 02/15/16 04/15/23 Omeprazole 1 tab PO DAILY 02/15/16 04/15/23 allopurinoL [Allopurinol] 300 mg PO DAILY 02/15/16 04/15/23 Terazosin HCl 1 cap PO DAILY 08/12/17 04/15/23 Valsartan [Diovan] 80 mg PO DAILY 04/19/20 04/15/23 Amlodipine Besylate [Norvasc] 2.5 mg PO DAILY 05/26/22 04/15/23 Fluticasone [Flonase] 1 sprays DEDE DAILY 05/26/22 04/15/23 hydroCHLOROthiazide [Hydrodiuril] 25 mg PO DAILY 05/26/22 04/15/23 Gabapentin [Neurontin] See Rx Instructions .ROUTE .COMPLEX 11/18/22 04/15/23 Multivitamin See Rx Instructions .ROUTE .COMPLEX 11/18/22 04/15/23 Potassium Chloride [Klor-Con M10] See Rx Instructions .ROUTE .COMPLEX 11/18/22 04/15/23 - Allergies Allergies/Adverse Reactions: Allergies Allergy/AdvReac Type Severity Reaction Status Date / Time ranitidine Allergy Cramps Verified 04/15/23 14:34 - Social History Does the pt smoke?: No Smoking Status: Never smoker Does the pt drink ETOH?: Yes Does the pt have substance abuse?: No - Immunizations Immunizations are current?: Yes Immunizations: TDAP current <10years - POLST Patient has POLST: No PD ED PE NORMAL - Vitals Vital signs reviewed: Yes - General General: Alert and oriented X 3, No acute distress - HEENT HEENT: Atraumatic, PERRL, EOMI, Moist mucous membranes - Neck Neck: Supple, no meningeal sign - Respiratory Respiratory: No respiratory distress - Derm Derm: Warm and dry - Extremities Extremities: Other (Right knee - No tenderness along the joint line of the right knee. No crepitus. No ecchymosis. No abrasions. No joint effusion. There is some tenderness over the medial collateral ligament and has pain with testing of the medial collateral ligament. not unstable. ) - Neuro Neuro: Alert and oriented X 3 - Psych Psych: Normal mood, Normal affect Results - Vitals Vitals: Vital Signs - 24 hr 04/15/23 04/15/23 14:31 18:19 Temperature 36.3 C L Heart Rate 100 66 Respiratory 16 14 Rate Blood Pressure 160/71 H 154/87 H O2 Saturation 95 98 Oxygen O2 Source Room air PD Medical Decision Making - ED course Complexity details: reviewed results, re-evaluated patient, considered differential, d/w patient ED course: 77-year-old male presents to the emergency department with what appears to be a mild right knee sprain. He is tender over the medial collateral ligament but th ere is no significant laxity. Pain is reproduced with valgus stress on the knee. No patellar pain or tenderness. Declines any pain medication here. He will wrap the knee at home. Has a cane that he can use as well. He will use this in the left hand. No acute findings on x-ray. Patient counseled regarding signs and symptoms for which I believe and urgent re-evaluation would be necessary. Patient with good understanding of and agreement to plan and is comfortable going home at this time This document was made in part using voice recognition software. While efforts are made to proofread this document, sound alike and grammatical errors may occur. Departure - Departure Disposition: 01 Home, Self Care Clinical Impression: Contusion of right knee Qualifiers: Encounter type: initial encounter Qualified Code(s): S80.01XA - Contusion of right knee, initial encounter Right knee sprain Qualifiers: Encounter type: initial encounter Involved ligament of knee: medial collateral ligament Qualified Code(s): S83.411A - Sprain of medial collateral ligament of right knee, initial encounter Condition: Good Instructions: ED Sprain Knee Collateral Ligaments Follow-Up: Calos Montenegro MD [Primary Care Provider] - Comments: If you are still having pain in 1 week, please follow-up with your doctor for repeat evaluation. You can use Motrin or Tylenol as needed for pain. A neoprene brace may help as well as a cane. I do not see any fractures on your x-ray today. You appear to have a strain of your medial collateral ligament. This should improve on its own. Forms: PCP List Discharge Date/Time: 04/15/23 18:25
[2023-04-15 18:25] VITALS: BP 154/87; O2SAT 98
== END 2023-04-15 18:25 | disposition home or self-care (01) ==
LOC: ED 14:04
DX: S83.411A Sprain of medial collateral ligament of right knee, initial encounter (principal); W01.0XXA Fall on same level from slipping, tripping and stumbling without subsequent striking against object, initial encounter; I10 Essential (primary) hypertension
CPT/HCPCS: 99283

== ENCOUNTER 2023-04-25 07:26 | Outpatient (CLI) | payer MEDICARE, OTHER ==
[2023-04-25 07:48] LABS: BASOPHILS # (AUTO) 0.1 10^3/uL (0.0-0.1); EOSINOPHILS # (AUTO) 0.4 10^3/uL (0.0-0.7); EOSINOPHILS % (AUTO) 7.4 %; HCT - HEMATOCRIT 47.5 % (42.0-52.0); HGB - HEMOGLOBIN 15.1 g/dL (14.0-18.0); LYMPHOCYTES # (AUTO) 1.8 10^3/uL (1.5-3.5); LYMPHOCYTES % (AUTO) 29.6 %; MEAN CORPUSCULAR HEMOGLOBIN 30.4 pg (27.0-31.0); MEAN CORPUSCULAR HGB CONC 31.8 g/dL (32.0-36.0); MEAN CORPUSCULAR VOLUME 95.8 fL (80.0-94.0); MEAN PLATELET VOLUME 10.4 fL (7.4-11.4); MONOCYTES # (AUTO) 0.6 10^3/uL (0.0-1.0); MONOCYTES % (AUTO) 9.4 %; NEUTROPHILS # (AUTO) 3.1 10^3/uL (1.5-6.6); NEUTROPHILS % (AUTO) 52.1 %; PLT - PLATELET COUNT 205 10^3/uL (130-450); RED BLOOD COUNT 4.96 10^6/uL (4.70-6.10); RED CELL DISTRIBUTION WIDTH 14.2 % (12.0-15.0); WHITE BLOOD COUNT 5.9 x10^3/uL (4.8-10.8)
[2023-04-25 08:02] LABS: ALBUMIN 3.8 g/dL (3.2-5.5); ALBUMIN/GLOBULIN RATIO 1.2 (1.0-2.2); ALKALINE PHOSPHATASE 71 IU/L (42-121); ALT ALANINE AMINOTRANSFERASE 18 IU/L (10-60); AST ASPARTATE AMINOTRANSFERASE 19 IU/L (10-42); BUN - BLOOD UREA NITROGEN 17 mg/dL (6-20); CALCIUM 9.4 mg/dL (8.5-10.3); CARBON DIOXIDE - CO2 32 mmol/L (21-32); CHLORIDE 103 mmol/L (101-111); CHOL/HDL RATIO 2.4 (<5.0); CHOLESTEROL 159 mg/dL; CREATININE 0.9 mg/dL (0.6-1.3); GFR - MDRD 82 (>89); GLUCOSE 91 mg/dL (74-104); HDL CHOLESTEROL 66 mg/dL; LDL CHOLESTEROL,CALCULATED 71 mg/dL; LDL/HDL RATIO 1.1 (<3.6); POTASSIUM 3.8 mmol/L (3.5-4.5); SODIUM 141 mmol/L (135-145); TRIGLYCERIDES 112 mg/dL (48-352); VLDL CHOLESTEROL 22 mg/dL
[2023-04-25 08:13] LABS: THYROID STIMULATING HORMONE 2.36 uIU/mL (0.34-5.60)
[2023-04-25] MEDS: iohexoL-300 100 ML VIAL IVP ONE (08:22)
--- NOTE | 2023-04-25 09:50 | CT Report ---
PROCEDURE: Chest W INDICATIONS: LUNG CA CONTRAST: iohex 300 100ml TECHNIQUE: After the administration of intravenous contrast, a CT scan of the chest was performed. Images were recorded and evaluated at appropriate window settings. Reformats: axial MIP of the chest, coronal and sagittal. For radiation dose reduction, the following was used: automated exposure control, adjustme nt of mA and/or kV according to patient size. COMPARISON: None available at the time of dictation. FINDINGS: Image quality: Diagnostic. Chest wall and lower neck: No thyroid nodule which requires sonographic follow up. No axillary or sup raclavicular adenopathy by size. Lungs and pleura: Severe emphysematous lung changes. . No pleural effusions. No pneumothorax. 10 mm right lower lobe nodule on image 66/4. Mucous is seen in the dependent portion of the trachea. Mediastinum: Heart size is top normal in size. No pericardial effusion. No large vessel abnormality. No mediastinal adenopathy by size criteria. Bones: No aggressive osseous abnormality. Upper Abdomen: 1.5 cm hypodense lesion in the liver dome. 4.5 cm partially visualized left renal cyst ic lesion. 1 cm hypodensity in the pancreatic tail image 91/2. 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 IMPRESSION: 1. A 10 mm nodule in the right base; consider CT in 3 months, PET/CT or tissue sampling. 2. A 1 cm hypodensity in the pancreatic tail likely a cyst; recommend follow-up CT abdomen pancreatic protocol in 2 years. 3. A 1.5 cm hypodense lesion in the right lobe liver, incompletely evaluated. In a patient with neopl rehan, metastasis is difficult to exclude. Reviewed by: Rey Chambers MD on 04/25/2023 9:48 AM PDT Approved by: Rey Chambers MD on 04/25/2023 9:48 AM PDT Station ID: [id number]
== END 2023-04-25 07:27 | disposition home or self-care (01) ==
LOC: LAB 07:26
PROVIDERS: ATTEND Family Medicine
DX: R40.0 Somnolence (principal); I10 Essential (primary) hypertension; G47.9 Sleep disorder, unspecified; R06.09 Other forms of dyspnea; C34.90 Malignant neoplasm of unspecified part of unspecified bronchus or lung; G25.81 Restless legs syndrome; J33.8 Other polyp of sinus; Z12.5 Encounter for screening for malignant neoplasm of prostate; N40.0 Benign prostatic hyperplasia without lower urinary tract symptoms; R91.1 Solitary pulmonary nodule; K76.9 Liver disease, unspecified; R93.89 Abnormal findings on diagnostic imaging of other specified body structures
CPT/HCPCS: 36415; 71260; 80053; 80061; 84443; 85025; G0103; 83721; 84153

== ENCOUNTER 2023-05-05 09:03 | Outpatient (CLI) | payer MEDICARE, OTHER ==
--- NOTE | 2023-05-05 09:35 | Sleep Patient Instructions ---
Sleep Center Visit Summary - Patient Visit Information Reason for Visit: 2-month follow-up - Patient Instructions Additional Instructions: You were here for follow up of CPAP therapy. You will be continued on CPAP therapy with pressure at 5-10 cmH2O. I have written a mask refitting for a hybrid full face mask. [facility] should reach out to you to set this up. You should follow up with sleep care in 3 months. You may contact us sooner for any questions or concerns. - Clinic Information Contact: [facility] [address] [place] [address] [email or web address] T: [phone]
--- NOTE | 2023-05-05 09:44 | SLEEP CARE CONSULTATION ---
Information from patient questionnaire entered by Felipa Hendrickson. I have reviewed and concur with the information entered by Felipa Hendrickson. This document represents the service I personally performed and the decisions made by me, Irasema Rios ARNP. History of Present Illness Service Date and Time: 05/05/2023 0903 Previous diagnosis: Extremely Severe, Obstructive Sleep Apnea-Hypopnea Syndrome AHI: 129.9 (12/2022) Reason for follow up: other (2 MONTH F/U) Accompanied by: Spouse (Tanya) Equipment type: CPAP (AIRSNESE 11 AUTOSET S/U 01/24/23) Equipment obtained from: Other ([facility]) Mask style: Full face Mask brand: Siesta Backup mask available: Yes Last cushion change: 4 days Prior sleep studies: No Type of Sleep Study: Polysomnography (COMPLETED 12/19/22) HPI additional information: LEE FANG was diagnosed to have extremely severe, AHI 129.9, obstructive sleep apnea-hypopnea syndrome and returned today for CPAP therapy two month follow-up. Sleep Study - Results Type of Sleep Study: Polysomnography (COMPLETED 12/19/22) Prior sleep studies: No CPAP Compliance Data - Data Reviewed with Patient Average duration of nightly device use: 9 HRS 7 MINS Compliance rate %: 100 (03/04/23-05/02/23; 60/60 days used) Current pressure setting (cmH2O): 5-10 Average residual AHI: 0.3 Central apnea: 0 Obstructive apnea: 0.1 Hypopnea: 0.2 Subjective Patient concerns: reports: mask discomfort (facial swelling), air blowing in eyes, condensation in mask/hose, other (warm air blowing in face). denies: mask leak noise, nasal congestion, dry mouth, nose, throat, epistaxis Observed to snore while using device: No Current pressure setting perceived as: comfortable On therapy, patient: reports: sleeping better, awakening more refreshed, being more awake and alert during the day, more rested overall, other ( says not falling asleep during day as much). denies: drowsiness while driving Initial [place] Sleepiness Scale score: 11 (11/07/22) Current [place] Sleepiness Scale score: 5 (05/05/23) Allergies and Home Medications Known drug allergies: Yes (as listed) Drug allergies reviewed: Yes Home medication list reviewed: Yes (no changes) Allergy and home medication list: Allergies ranitidine Allergy (Verified 05/03/23 08:55) Cramps Review of Systems Review of systems same as previous: Yes (NO CHANGE) Physical Exam Vital signs obtained and entered by: FELIPA Hills MA Blood Pressure: 145/79 (LEFT ARM) Cuff size: regular Heart Rate: 79 O2 Saturation: 91 Height: 5 ft 10 in (PER PT) Weight: 258 lb 12.8 oz Body Mass Index: 37.1 BMI Classification: Obese Impression and Plan 1. Obstructive Sleep Apnea-Hypopnea Syndrome, extremely severe, with good treatment compliance and good apnea control. On CPAP therapy, the patient has better sleep quality and is more rested overall. He has some mask discomfort and where the full face Siesta straps sits on face causes swelling under his eyes, especially on the right. He says it is not painful, just annoying. Patient has significant improvement of their sleep apnea and is satisfied with current CPAP therapy and pressure settings. I will write order for a mask refitting for a full face/hybrid mask to find a mask with strapping that may fit better and reduce facial swelling. Patient's apnea severity and rationale for treatment to reduce apnea, improve sleep quality and reduce cardiovascular and cerebrovascular events was reviewed. I also reviewed the benefit of consistent device use of CPAP for hypertension. 2. Obesity, unspecified. Currently patients BMI is 37.1. Obesity increases the risk of apnea, CPAP pressure requirements and overall health risks especially cardiovascular and diabetes. Thus patient is advised to lose weight. * Continue auto CPAP pressure at 5-10 cmH2O * Mask refitting for hybrid full face mask * Notify me if snoring with mask or feeling that the pressure is too much or too little * Attempt to lose weight * Call this office if any problems using CPAP * Return for follow up in 3 months, or sooner if concerns arise Counseling Topics: Spare mask, Weight loss health impact Prescriptions: Other (mask refitting for hybrid full face mask) Follow up with Sleep Care in: 3 months Visit Type: In Office Time Spent with Patient (minutes): 29 Provider Statement: I spent 100% of the Face to Face Visit with the patient with greater than 50% spent counseling the patient and coordination of care.
[2023-05-05 09:45] VITALS: BP 145/79; O2SAT 91
== END 2023-05-05 09:04 | disposition home or self-care (01) ==
LOC: SC 09:03
PROVIDERS: ATTEND Nurse Practitioner Family
DX: G47.33 Obstructive sleep apnea (adult) (pediatric) (principal); E66.9 Obesity, unspecified; Z68.37 Body mass index [BMI] 37.0-37.9, adult
CPT/HCPCS: 99213; G0463; 99212

== ENCOUNTER 2023-08-01 09:32 | Outpatient (CLI) | payer MEDICARE, OTHER ==
--- NOTE | 2023-08-01 10:03 | Sleep Patient Instructions ---
Sleep Center Visit Summary - Patient Visit Information Reason for Visit: 3-month follow-up - Patient Instructions Additional Instructions: You were here for follow up of CPAP therapy. You will be continued on CPAP therapy with pressure at 5-10 cmH2O. You should follow up with sleep care in 12 months. You may contact us sooner for any questions or concerns. - Clinic Information Contact: [facility] [address] [place] [address] [email or web address] T: [phone]
--- NOTE | 2023-08-01 10:07 | SLEEP CARE CONSULTATION ---
Information from patient questionnaire entered by Felipa Hendrickson. I have reviewed and concur with the information entered by Felipa Hendrickson. This document represents the service I personally performed and the decisions made by , Irasema Rios ARNP. History of Present Illness Service Date and Time: 08/01/2023 09 Previous diagnosis: Extremely Severe, Obstructive Sleep Apnea-Hypopnea Syndrome AHI: 129.9 (12/2022) Reason for follow up: three month (F/U) Accompanied by: Spouse Equipment type: CPAP (AIRSENSE 11 AUTOSET S/U 01/24/23) Equipment obtained from: Other ([facility]; getting supplies) Mask style: Full face (hybrid) Backup mask available: Yes (old mask) Last cushion change: 2 weeks ago Prior sleep studies: No Type of Sleep Study: Polysomnography (COMPLETED 12/19/22) HPI additional information: LEE FANG was diagnosed to have extremely severe, AHI 129.9, obstructive sleep apnea-hypopnea syndrome and returned today for CPAP therapy three month follow-up. Sleep Study - Results Type of Sleep Study: Polysomnography (COMPLETED 12/19/22) Prior sleep studies: No CPAP Compliance Data - Data Reviewed with Patient Average duration of nightly device use: 9 HRS 14 MINS Compliance rate %: 100 (04/29/23-07/27/23; 90/90 days used) Current pressure setting (cmH2O): 5-10 Average residual AHI: 0.7 Central apnea: 0 Obstructive apnea: 0.3 Hypopnea: 0.4 Average large leak: 0 L/min Subjective Patient concerns: reports: mask discomfort (better with new mask), air blowing in eyes. denies: aerophagia, mask leak noise, condensation in mask/hose, nasal congestion, dry mouth, nose, throat, epistaxis Observed to snore while using device: No Current pressure setting perceived as: comfortable On therapy, patient: reports: sleeping better, awakening more refreshed, being more awake and alert during the day, more rested overall. denies: drowsiness while driving Initial [place] Sleepiness Scale score: 11 (11/07/22) Current [place] Sleepiness Scale score: 5 (08/01/23) Allergies and Home Medications Known drug allergies: Yes (as listed) Drug allergies reviewed: Yes Home medication list reviewed: Yes (no changes) Allergy and home medication list: Allergies ranitidine Allergy (Verified 07/28/23 09:38) Cramps Review of Systems Review of systems same as previous: Yes (NO CHANGE) Physical Exam Vital signs obtained and entered by: FELIPA Hills MA Blood Pressure: 159/82 (RIGHT ARM) Cuff size: long Heart Rate: 76 O2 Saturation: 94 Height: 5 ft 10 in (PER PT) Weight: 256 lb 3.2 oz Body Mass Index: 36.7 BMI Classification: Obese Impression and Plan 1. Obstructive Sleep Apnea-Hypopnea Syndrome, extremely severe, with good treatment compliance and good apnea control. On CPAP therapy, the patient has better sleep quality and is more rested overall. Patient is still getting some lines on his face from his mask because he sleeps on his right side. He says he likes the new hybrid fullface mask that he is using because it leaks less and is more comfortable. He overall does not like to wear the mask but is wearing it faithfully every night. His says he is sleeping better and appears more rested throughout the day from her perspective. He is doing well and is comfortable with CPAP use, we will follow-up with him next year. Patient's apnea severity and rationale for treatment to reduce apnea, improve sleep quality and reduce cardiovascular and cerebrovascular events was reviewed. I also reviewed the benefit of consistent device use of CPAP for hypertension. 2. Obesity, unspecified. Currently patients BMI is 36.7. Obesity increases the risk of apnea, CPAP pressure requirements and overall health risks especially cardiovascular and diabetes. Thus patient is advised to lose weight. * Continue auto CPAP pressure at 5-10 cmH2O * Notify me if snoring with mask or feeling that the pressure is too much or too little * Attempt to lose weight * Call this office if any problems using CPAP * Return for follow up in 12 months, or sooner if concerns arise Counseling Topics: Spare mask, Weight loss health impact Follow up with Sleep Care in: 1 year Visit Type: In Office Time Spent with Patient (minutes): 20 Provider Statement: I spent 100% of the Face to Face Visit with the patient with greater than 50% spent counseling the patient and coordination of care.
[2023-08-01 10:10] VITALS: BP 159/82; O2SAT 94
== END 2023-08-01 09:33 | disposition home or self-care (01) ==
LOC: SC 09:32
PROVIDERS: ATTEND Nurse Practitioner Family
DX: G47.33 Obstructive sleep apnea (adult) (pediatric) (principal); E66.9 Obesity, unspecified; Z68.36 Body mass index [BMI] 36.0-36.9, adult
CPT/HCPCS: 99213; G0463; 99212

== ENCOUNTER 2023-10-23 08:04 | Outpatient (CLI) | payer MEDICARE, OTHER ==
[2023-10-23 08:21] LABS: BASOPHILS # (AUTO) 0.1 10^3/uL (0.0-0.1); BASOPHILS % (AUTO) 0.8 %; EOSINOPHILS # (AUTO) 0.2 10^3/uL (0.0-0.7); EOSINOPHILS % (AUTO) 2.9 %; HCT - HEMATOCRIT 43.9 % (42.0-52.0); HGB - HEMOGLOBIN 14.4 g/dL (14.0-18.0); LYMPHOCYTES # (AUTO) 1.7 10^3/uL (1.5-3.5); LYMPHOCYTES % (AUTO) 25.5 %; MEAN CORPUSCULAR HEMOGLOBIN 31.6 pg (27.0-31.0); MEAN CORPUSCULAR HGB CONC 32.8 g/dL (32.0-36.0); MEAN CORPUSCULAR VOLUME 96.5 fL (80.0-94.0); MEAN PLATELET VOLUME 10.2 fL (7.4-11.4); MONOCYTES # (AUTO) 0.6 10^3/uL (0.0-1.0); MONOCYTES % (AUTO) 9.1 %; NEUTROPHILS % (AUTO) 61.2 %; PLT - PLATELET COUNT 214 10^3/uL (130-450); RED BLOOD COUNT 4.55 10^6/uL (4.70-6.10); RED CELL DISTRIBUTION WIDTH 13.6 % (12.0-15.0); WHITE BLOOD COUNT 6.5 x10^3/uL (4.8-10.8)
[2023-10-23 08:43] LABS: ALBUMIN 3.8 g/dL (3.2-5.5); ALBUMIN/GLOBULIN RATIO 1.3 (1.0-2.2); BILIRUBIN,TOTAL 0.8 mg/dL (0.2-1.0); CALCIUM 9.1 mg/dL (8.5-10.3); CREATININE 0.9 mg/dL (0.6-1.3); POTASSIUM 3.5 mmol/L (3.5-4.5); TOTAL PROTEIN 6.8 g/dL (6.4-8.9)
== END 2023-10-23 08:05 | disposition home or self-care (01) ==
LOC: LAB 08:04
PROVIDERS: ATTEND Family Medicine
DX: G47.30 Sleep apnea, unspecified (principal); G25.0 Essential tremor; G47.9 Sleep disorder, unspecified; R33.9 Retention of urine, unspecified; G25.81 Restless legs syndrome
CPT/HCPCS: 36415; 80053; 85025